=== PATIENT | female | born 1970 | race African-American/Black ===

== ENCOUNTER → 2016-09-25 | Outpatient (CLI) | payer OTHER ==
--- NOTE | 2016-09-25 11:23 | MM ---
Reason for exam: screening (asymptomatic). Last mammogram was performed 1 year and 10 months ago. History: Family history of breast cancer in maternal aunt at age 63. Physical Findings: A clinical breast exam by your physician is recommended on an annual basis and results should be correlated with mammographic findings. MG Screening Mammo w CAD Bilateral CC and MLO view(s) were taken. Prior study comparison: December 10, 2014, bilateral MG screening mammo w CAD. May 08, 2012, bilateral digital screening mammo w/CAD. There are scattered fibroglandular densities. There is no discrete abnormality. ASSESSMENT: Negative, BI-RAD 1 RECOMMENDATION: Routine screening mammogram of both breasts in 1 year.
== END | disposition home or self-care (01) ==
LOC: RADMAMWWP 07:57
PROVIDERS: ATTEND Internal Medicine
DX: Z12.31 Encounter for screening mammogram for malignant neoplasm of breast (principal)

== ENCOUNTER → 2018-06-25 | Outpatient (CLI) | payer OTHER ==
--- NOTE | 2018-06-25 13:31 | US ---
EXAMINATION TYPE: US pelvis complete transvag DATE OF EXAM: 06/25/2018 COMPARISON: NONE CLINICAL HISTORY: N93.9 abn uterine bleeding. Irregular bleeding x 3 months, 6, para 6, hist ory of tubal ligation TECHNIQUE: . Transabdominal sonographic images of the pelvis were acquired. Transvaginal sonographi c images were medically necessary to better assess the following anatomy: retroverted uterus and ovar ies Date of LMP: patient unsure EXAM MEASUREMENTS: Uterus: 9.7 x 5.9 x 6.9 cm Endometrial Stripe: 2.5 cm Right Ovary: 4.3 x 2.7 x 2.0 cm Left Ovary: 3.8 x 3.0 x 2.9 cm 1. Uterus: retroverted, heterogeneous echotexture with 1.9 x 1.8 x 1.7cm hypoechoic lesion left mid uterus 2. Endometrium: thickened, heterogeneous 3. Right Ovary: wnl 4. Left Ovary: 3.2 x 2.2 x 2.3cm cyst 5. Bilateral Adnexa: wnl 6. Posterior cul-de-sac: small amount of free fluid IMPRESSION: Findings compatible with fibroid uterus. There is a left ovarian cyst. Consider follow-up .
== END ==
LOC: RADUSWWP 10:44
PROVIDERS: ATTEND Obstetrics & Gynecology
DX: N83.202 Unspecified ovarian cyst, left side (principal)
CPT/HCPCS: 76830; 76856

== ENCOUNTER → 2018-06-25 | Outpatient (CLI) | payer OTHER ==
[2018-06-25 12:43] LABS: Anisocytosis Slight; HCT 31.3 % (34.0-46.0); HGB 9.2 gm/dL (11.4-16.0); Hypochromasia Marked; MCH 23.4 pg (25.0-35.0); MCHC 29.4 g/dL (31.0-37.0); MCV 79.6 fL (80.0-100.0); Microcytosis Slight; Platelet Count 332 k/uL (150-450); RBC 3.93 m/uL (3.80-5.40); RDW 18.2 % (11.5-15.5); WBC 8.9 k/uL (3.8-10.6)
[2018-06-25 19:05] LABS: Progesterone 4.1 ng/mL
[2018-06-25 19:07] LABS: DHEA Sulfate 86.9 ug/dL (26.0-430.0)
[2018-06-25 19:08] LABS: T4, Free (Free Thyroxine) 1.1 ng/dL (0.80-1.80)
== END | disposition home or self-care (01) ==
LOC: LABWHC1 11:29
PROVIDERS: ATTEND Obstetrics & Gynecology
DX: N93.9 Abnormal uterine and vaginal bleeding, unspecified (principal)
CPT/HCPCS: 36415; 82627; 82670; 83001; 83002; 84144; 84146; 84403; 84439; 84443; 84479; 85027

== ENCOUNTER 2018-07-08 17:35 | Emergency (ER) | payer OTHER ==
[2018-07-08 17:55] VITALS: BP 109/74; PULSE 84; RESP 16; TEMP 98.1
--- NOTE | 2018-07-08 19:13 | XR ---
EXAMINATION TYPE: XR tibia fibula RT DATE OF EXAM: 07/08/2018 COMPARISON: 04/14/2016 HISTORY: Pain TECHNIQUE: 3 views FINDINGS: There is intramedullary frank in the tibia fixing an old fracture of the midshaft. There is o ld healed fracture of the midshaft of the tibia and fibula. I see no acute fracture nor dislocation. Ankle mortise appears anatomic. Knee joint appears intact. IMPRESSION: Previous surgery. No acute abnormality of the right tibia and fibula. No change.
--- NOTE | 2018-07-08 20:08 | US ---
EXAMINATION TYPE: US venous doppler duplex LE RT DATE OF EXAM: 07/08/2018 6:46 PM COMPARISON: NONE CLINICAL HISTORY: Pain. Pain SIDE PERFORMED: Right TECHNIQUE: The lower extremity deep venous system is examined utilizing real time linear array sonog ángel with graded compression, doppler sonography and color-flow sonography. VESSELS IMAGED: External Iliac Vein (EIV) Common Femoral Vein Deep Femoral Vein Greater Saphenous Vein * Femoral Vein Popliteal Vein Small Saphenous Vein * Proximal Calf Veins (* superficial vessels) Right Leg: Negative for DVT No evidence of DVT right leg. IMPRESSION: Normal right leg duplex venous sonogram.
--- NOTE | 2018-07-08 20:20 | ED ---
Fall HPI - General Chief Complaint: Fall Stated Complaint: FALL, RT LEG INJURY Time Seen by Provider: 07/08/18 18:06 Source: patient Mode of arrival: wheelchair - History of Present Illness Initial Comments: 48-year-old female past medical history of previous right tibia fracture status post ORIF 2015 presents today for chief complaint of right leg pain x 1 day. Patient states that earlier today she was walking when she noticed pain in her right posterior calf, she stated it was intense causing her to fall to forward. Patient denies any head injury or injury to any other extremity. Pt states that she is able to range at the knee and ankle just experiencing pain in the posterior right calf with palpation, and ambulation. Pt denies recent surgery, history of cancer, exogenous estrogen use, calf swelling or warmth, calf masses , color changes of the extremity, loss sensation of the lower extremity, numbness tingling or paresthesias of the lower extremities or recent abx use. She states she was concerned that something occurred with her bronchitis in her leg and presented for evaluation. Upon arrival patient appears well, she was using crutches for ambulation. Pt does appear well in no acute distress. Remainder of ROS (-), patient denies any recent fever, chills, shortness of breath, chest pain, back pain, abdominal pain, nausea or vomiting, numbness or tingling, dysuria or hematuria, constipation or diarrhea, headaches or visual changes, or any other complaints. - Related Data Home Medications Medication Instructions Recorded Confirmed Ferrous Sulfate [Feosol] 325 mg PO DAILY 06/01/16 05/18/17 Allergies Allergy/AdvReac Type Severity Reaction Status Date / Time No Known Allergies Allergy Verified 07/08/18 17:55 Review of Systems ROS Statement: Those systems with pertinent positive or pertinent negative responses have been documented in the HPI. ROS Other: All systems not noted in ROS Statement are negative. Constitutional: Denies: fever, chills ENT: Denies: ear pain, throat pain Respiratory: Denies: cough, dyspnea, wheezes, hemoptysis, stridor Cardiovascular: Denies: chest pain, palpitations, dyspnea on exertion, edema Gastrointestinal: Denies: abdominal pain, nausea, vomiting, diarrhea, constipation Genitourinary: Denies: dysuria Musculoskeletal: Reports: myalgia. Denies: back pain Skin: Denies: rash, lesions Neurological: Denies: headache, weakness, numbness, paresthesias, confusion, abnormal gait Past Medical History Past Medical History: Blood Disorder Additional Past Medical History / Comment(s): MIGRAINES. ANEMIA. PAIN IN UPPER MID ABD. History of Any Multi-Drug Resistant Organisms: None Reported Past Surgical History: Cholecystectomy, Orthopedic Surgery Additional Past Surgical History / Comment(s): ORIF Right Leg, Aguila Placed Past Anesthesia/Blood Transfusion Reactions: No Reported Reaction Past Psychological History: No Psychological Hx Reported Smoking Status: Current every day smoker Past Alcohol Use History: Occasional Past Drug Use History: Marijuana - Past Family History Mother Family Medical History: No Reported History General Exam - General Exam Comments Initial Comments: General: The patient is awake and alert, in no distress, and does not appear acutely ill. Eye: Pupils are equal, round and reactive to light, extra-ocular movements are intact. No nystagmus. There is normal conjunctiva bilaterally. No signs of icterus. Ears, nose, mouth and throat: There are moist mucous membranes and no oral lesions. Neck: The neck is supple, there is no tenderness or JVD. Cardiovascular: There is a regular rate and rhythm. No murmur, rub or gallop is appreciated. Respiratory: Lungs are clear to auscultation, respirations are non-labored, breath sounds are equal. No wheezes, stridor, rales, or rhonchi. Musculoskeletal: Patient is able to fully range at the right lower extremity with extension and flexion at the knee, flexion and extension inversion eversion at the ankle. Upon inspection of the right lower extremity there is no erythema, no masses. Upon palpation of the right lower extremity there is pain of the posterior right calf, no palpable masses. There is no bogginess noted of the Achilles tendon. Achilles tendon is palpable. Nadeau intact, flexion with squeezing of calf. Strength 5/5 of the right LE equal in comparison with left. Sensation intact of the LE. DP pulses equal bilaterally 2+ .Extensor mechanism intact. Neurological: A&O x 3. CN II-XII intact, There are no obvious motor or sensory deficits. Coordination appears grossly intact. Speech is normal Skin: Skin is warm and dry and no rashes or lesions are noted. Psychiatric: Cooperative, appropriate mood & affect, normal judgment. Limitations: no limitations Course Vital Signs 07/08/18 17:52 Temperature 98.1 F Pulse Rate 84 Respiratory 16 Rate Blood Pressure 109/74 O2 Sat by Pulse 98 Oximetry Medical Decision Making - Medical Decision Making 48yo with right posterior calf pain that occurred suddenly today while walking concerning for tendon/muscle injury. Pt neurovascularly intact, full range of motion at the knee and ankle of the right lower extremity. There is no clinical signs on PE of Achilles tendon injury. X-ray negative for acute process. Surgical changes noted. Ultrasound obtained due to complaint of right calf pain, negative for deep venous thrombosis. At this time I feel patient may have a muscle or tendon tear including that of the gastroc. At this time we do feel patient is stable for discharge with follow-up with orthopedic surgery. Patient was instructed to use crutches for ambulation was given pain medication while in the emergency department, she states she has a ride home. Case discussed with Dr. Foley in detail who agrees with impression and plan. Disposition Clinical Impression: Right leg pain Disposition: HOME SELF-CARE Condition: Good Instructions: Leg Pain (ED) Additional Instructions: Please use medication as discussed. Please follow-up with family doctor in the next 2 days, and orthopedic surgery in next 2-3 days, for possible muscle tear. Please ambulate with crutches until evaluation. Please return to emergency room if the symptoms increase or worsen or for any other concerns, as discussed. Is patient prescribed a controlled substance at d/c from ED?: No Referrals: Ashley Arellano MD [Primary Care Provider] - 1-2 days Aubrey Perez MD [STAFF PHYSICIAN] - 1-2 days Time of Disposition: 20:20
== END 2018-07-08 20:26 | disposition home or self-care (01) ==
LOC: EC 17:35
DX: M79.604 Pain in right leg (principal); F17.200 Nicotine dependence, unspecified, uncomplicated; W19.XXXA Unspecified fall, initial encounter; Y93.01 Activity, walking, marching and hiking
CPT/HCPCS: 99284

== ENCOUNTER → 2018-07-29 | Outpatient (CLI) | payer OTHER ==
[2018-07-29 15:06] LABS: Anisocytosis Moderate; Basophils % (A) 0 %; Eosinophils # (A) 0.1 k/uL (0-0.7); Eosinophils % (A) 1 %; HCT 30.6 % (34.0-46.0); HGB 8.6 gm/dL (11.4-16.0); Hypochromasia Marked; Lymphocytes # (A) 2.4 k/uL (1.0-4.8); Lymphocytes % (A) 27 %; MCH 22.2 pg (25.0-35.0); MCHC 28.2 g/dL (31.0-37.0); MCV 78.8 fL (80.0-100.0); Mean Platelet Volume 6.6; Microcytosis Slight; Monocytes # (A) 0.4 k/uL (0-1.0); Monocytes % (A) 4 %; Neutrophils # (A) 5.5 k/uL (1.3-7.7); Neutrophils % (A) 63 %; Platelet Count 322 k/uL (150-450); Poikilocytosis Slight; RBC 3.88 m/uL (3.80-5.40); RDW 20.5 % (11.5-15.5); WBC 8.8 k/uL (3.8-10.6)
== END ==
LOC: LABPAT 13:58
PROVIDERS: ATTEND Obstetrics & Gynecology
DX: Z01.812 Encounter for preprocedural laboratory examination (principal)
CPT/HCPCS: 36415; 85025

== ENCOUNTER 2018-08-06 11:01 | Day surgery (SDC) | payer OTHER ==
[2018-08-02 12:29] VITALS: BMI 32.8
--- NOTE | 2018-08-05 16:35 | P.HPOB ---
History of Present Illness H&P Date: 08/05/18 Chief Complaint: Heavy vaginal bleeding Patient is a 48-year-old female with heavy vaginal bleeding. She relates that she is had 30 days of bleeding throughout the month of April as well as several other occasions with heavy long periods. Ultrasound revealed an endometrium measured measuring 2.5 cm. With a potential risk of hyperplasia versus polyp she is scheduled for dilation and curettage with hysteroscopy. Risks/benefits/alternatives to this procedure were discussed with the patient in detail and all questions were answered for her prior to proceeding to the operating room. Past Medical History Past Medical History: Blood Disorder Additional Past Medical History / Comment(s): MIGRAINES. ANEMIA. History of Any Multi-Drug Resistant Organisms: None Reported Past Surgical History: Cholecystectomy, Orthopedic Surgery, Tubal Ligation Additional Past Surgical History / Comment(s): ORIF Right Leg, Aguila Placed Past Anesthesia/Blood Transfusion Reactions: No Reported Reaction Smoking Status: Current every day smoker - Past Family History Mother Family Medical History: No Reported History Medications and Allergies Home Medications Medication Instructions Recorded Confirmed Type Ferrous Sulfate [Feosol] 325 mg PO DAILY 06/01/16 08/02/18 History Allergies Allergy/AdvReac Type Severity Reaction Status Date / Time No Known Allergies Allergy Verified 08/02/18 12:23 Exam Osteopathic Statement: *. No significant issues noted on an osteopathic structural exam other than those noted in the History and Physical/Consult. - OBG Physical Exam Breast: both: normal (no masses) Abdomen: bowel sounds normal, no diffuse tenderness, no bruit present, no guarding noted, no hepatomegaly, no splenomegaly, no mass Vulva: both: normal Vagina: normal moisture, no discharge Cervix: no lesion, no discharge Uterus: normal size, normal contour Adnexa: both: normal Anus/Rectum: normal perianal skin, no rectal mass, no hemorrhoids, heme negative
[~2018-08-06 11:01] MED LIST: DEXAMETHASONE SOD PHOSPHATE 10 MG/ML 1 ML VIAL IV ONE; MIDAZOLAM (PF) 2 MG/2 ML VIAL IV PRN; ONDANSETRON 4 MG/2 ML VIAL IVP ONE; Pre Op ABX Message 1 EACH MISC MISCELLANE ONE; SCOPOLAMINE 1.5MG/72HR PATCH TRANSDERM ONE
[2018-08-06] MEDS: LACTATED RINGERS 1,000 ML IV SCH ×2 (11:28→12:11)
[2018-08-06] MEDS ORDERED: LIDOCAINE 1% 20 ML VIAL (10MG/ML) FOR IV START INTRADERMA ONE (11:29)
[2018-08-06 11:34] VITALS: TEMP 97.4
[2018-08-06] MEDS ORDERED: MIDAZOLAM 2 MG/2 ML VIAL ONE (12:14)
[2018-08-06] MEDS ORDERED: PROPOFOL 10 MG/ML 20 ML VIAL IV ONE (12:14)
[2018-08-06] MEDS ORDERED: LIDOCAINE 1% INJ 10MG/ML (20 ML MDV) ONE (12:14)
[2018-08-06] MEDS ORDERED: fentaNYL (PF) 50 MCG/ML 2 ML AMP ONE (12:14)
--- NOTE | 2018-08-06 12:40 | P.OP ---
Date of Procedure: 08/06/18 Preoperative Diagnosis: Menorrhagia: Thickened endometrium Postoperative Diagnosis: Same Procedure(s) Performed: D&C with hysteroscopy Anesthesia: JEROME Surgeon: Urbano Everett Estimated Blood Loss (ml): 5 Pathology: other (Uterine curettings) Condition: stable Disposition: same day Operative Findings: Grossly enlarged uterus retroverted at 11 cm. Possible small sub-mural fibroid Description of Procedure: Patient was taken to the operating suite where a general anesthetic was found be adequate. She was prepped and draped in normal sterile fashion and placed in the dorsal lithotomy position. Initially a weighted speculum was inserted into the vagina and the anterior lip of the cervix was identified and grasped with a single-tooth tenaculum. Cervix was then dilated and sounded to 11 cm. Camera was then inserted. Sharp retroversion was noted. Proliferative endometrium with possible small subdural fibroid was noted. Camera was then removed and sharp curettings of the endometrium were obtained. All tissues collected and placed on Telfa and sent to pathology for evaluation. Sponge, lap , needle counts were all then correct 2 all incidents removed and patient was taken to the recovery room in stable and satisfactory condition. Plan - Discharge Summary New Discharge Prescriptions: New Ibuprofen [Motrin] 600 mg PO Q6HR PRN #30 tab PRN Reason: Pain No Action Ferrous Sulfate [Feosol] 325 mg PO DAILY Discharge Medication List Ferrous Sulfate [Feosol] 325 mg PO DAILY 06/01/16 [History] Ibuprofen [Motrin] 600 mg PO Q6HR PRN #30 tab 08/06/18 [Rx] Follow up Appointment(s)/Referral(s): Urbano Everett DO [Doctor of Osteopathic Medicine] - 1 Week Activity/Diet/Wound Care/Special Instructions: No heavy lifting, limit stairs and driving and pelvic rest. If any high temperatures, heavy bleeding, or severe pain call my office Discharge Disposition: HOME SELF-CARE
[2018-08-06] MEDS ORDERED: KETOROLAC 30 MG/ML 1 ML VIAL IVP ONE (12:55)
[2018-08-06] MEDS: HYDROmorphone 0.5 MG/0.5 ML SYRINGE IVP PRN ×2 (12:56→13:08)
[2018-08-06 13:17] VITALS: RESP 16
[2018-08-06 13:59] VITALS: BP 119/64; PULSE 69
== END 2018-08-06 14:34 | disposition home or self-care (01) ==
LOC: OR 11:01
PROVIDERS: ATTEND Obstetrics & Gynecology
DX: N92.0 Excessive and frequent menstruation with regular cycle (principal); N84.0 Polyp of corpus uteri; D64.9 Anemia, unspecified; G43.909 Migraine, unspecified, not intractable, without status migrainosus; F17.210 Nicotine dependence, cigarettes, uncomplicated
CPT/HCPCS: 81025; 88305; 58558; J2250; J1100; J2405; J2001; J3010; J1885; J2704; J1170

== ENCOUNTER → 2018-08-30 | Outpatient (CLI) | payer OTHER ==
--- NOTE | 2018-09-02 09:56 | MM ---
Reason for exam: screening (asymptomatic). Last mammogram was performed 1 year and 11 months ago. History: Family history of breast cancer in maternal aunt at age 63. Physical Findings: A clinical breast exam by your physician is recommended on an annual basis and results should be correlated with mammographic findings. MG 3D Screening Mammo W/Cad Bilateral CC and MLO view(s) were taken. Prior study comparison: September 25, 2016, bilateral MG screening mammo w CAD. December 10, 2014, bilateral MG screening mammo w CAD. There are scattered fibroglandular densities. There is no discrete abnormality. No significant changes when compared with prior studies. ASSESSMENT: Negative, BI-RAD 1 RECOMMENDATION: Routine screening mammogram of both breasts in 1 year.
== END | disposition home or self-care (01) ==
LOC: RADMAMWWP 07:39
PROVIDERS: ATTEND Internal Medicine
DX: Z12.31 Encounter for screening mammogram for malignant neoplasm of breast (principal)
CPT/HCPCS: 77063; 77067

== ENCOUNTER 2019-04-16 09:08 | Day surgery (SDC) | payer OTHER ==
[~2019-04-16 09:08] MED LIST changes: -DEXAMETHASONE SOD PHOSPHATE 10 MG/ML 1 ML VIAL IV ONE; +LACTATED RINGERS 1,000 ML IV SCH; +LIDOCAINE 1% 20 ML VIAL (10MG/ML) FOR IV START INTRADERMA PRN; -MIDAZOLAM (PF) 2 MG/2 ML VIAL IV PRN; -ONDANSETRON 4 MG/2 ML VIAL IVP ONE; -Pre Op ABX Message 1 EACH MISC MISCELLANE ONE; -SCOPOLAMINE 1.5MG/72HR PATCH TRANSDERM ONE
[2019-04-16 09:47] VITALS: RESP 16; TEMP 97.7
[2019-04-16] MEDS ORDERED: LIDOCAINE 1% INJ 10MG/ML (20 ML MDV) ONE (10:08)
[2019-04-16] MEDS ORDERED: PROPOFOL 10 MG/ML 20 ML VIAL IV ONE (10:08)
--- NOTE | 2019-04-16 10:20 | P.GSHP ---
History of Present Illness H&P Date: 04/16/19 Chief Complaint: Epigastric pain, gastritis, anemia This a 48-year-old female who's had complaints of epigastric pain. She is undergoing EGD and colonoscopy workup for gastritis and anemia. Past Medical History Past Medical History: GERD/Reflux Additional Past Medical History / Comment(s): FREQUENT LOW IRON COUNTS. MIGRAINES. ANEMIA. PAIN IN UPPER MID ABD. History of Any Multi-Drug Resistant Organisms: None Reported Past Surgical History: Cholecystectomy, Orthopedic Surgery Additional Past Surgical History / Comment(s): ORIF Right Leg, Aguila Placed Past Anesthesia/Blood Transfusion Reactions: No Reported Reaction Past Psychological History: No Psychological Hx Reported Smoking Status: Current every day smoker Past Alcohol Use History: Occasional Additional Past Alcohol Use History / Comment(s): SMOKES 1/2 PPD, X20 YEARS. Past Drug Use History: Marijuana Additional Drug Use History / Comment(s): MARIJUANA USE DAILY - Past Family History Mother Family Medical History: No Reported History Medications and Allergies Home Medications Medication Instructions Recorded Confirmed Type Ferrous Sulfate [Feosol] 325 mg PO DAILY 06/01/16 04/16/19 History Ibuprofen [Motrin] 600 mg PO Q6HR PRN #30 tab 08/06/18 04/16/19 Rx Loratadine 10 mg PO QAM 04/11/19 04/16/19 History Pantoprazole [Protonix] 40 mg PO QAM 04/11/19 04/16/19 History Allergies Allergy/AdvReac Type Severity Reaction Status Date / Time No Known Allergies Allergy Verified 04/16/19 09:37 Surgical - Exam Vital Signs Temp Pulse Resp BP Pulse Ox 97.7 F 83 16 140/78 96 04/16/19 09:41 04/16/19 09:41 04/16/19 09:41 04/16/19 09:41 04/16/19 09:41 - General well developed, well nourished, no distress - Eyes PERRL - ENT normal pinna - Neck no masses - Respiratory normal expansion - Cardiovascular Rhythm: regular - Abdomen Abdomen: soft, non tender Assessment and Plan Assessment: Epigastric pain, anemia. We'll perform EGD and colonoscopy
--- NOTE | 2019-04-16 10:45 | P.OP ---
Date of Procedure: 04/16/19 Preoperative Diagnosis: Anemia Gastritis Postoperative Diagnosis: Hiatal hernia Esophagitis Antral gastritis Normal colon Procedure(s) Performed: EGD Colonoscopy Anesthesia: MAC Surgeon: Delgado Ward Pathology: other (Antrum, esophagus) Condition: stable Disposition: PACU Description of Procedure: PROCEDURE: The patient was placed on the endoscopy table in the lateral position. Digital rectal examination was performed which revealed no abnormalities. . Flexible colonoscope was then placed in the patient's anus and passed throughout the entire colon. The ileocecal valve was visualized. The cecum, ascending, transverse, descending and sigmoid colon were normal. The rectum was normal as well. There were no masses, polyps or diverticula noted in the entire colon. Next, the gastroscope placed oropharynx and passed in the esophagus and into the stomach. Scope was then placed through the pylorus. The first and second portion of the duodenum appeared normal. Scope was then brought back the antrum and this was mildly inflamed. A biopsies performed. The scope was then retro flexed and the remainder some appeared normal. The patient had a moderate size hiatal hernia. The GE junction was at 38 cm. The distal esophagus appeared inflamed a biopsies performed. The proximal esophagus appeared normal. Scope withdrawn for patient. There is no evidence of any significant GI bleed. The patient's anemia is most likely microscopic related to esophagitis from her hiatal hernia.
[2019-04-16 11:13] VITALS: BP 127/77; PULSE 70
== END 2019-04-16 11:29 | disposition home or self-care (01) ==
LOC: ORWHC2ENDO 09:08
PROVIDERS: ATTEND Surgery
DX: K21.0 Gastro-esophageal reflux disease with esophagitis (principal); K29.50 Unspecified chronic gastritis without bleeding; K44.9 Diaphragmatic hernia without obstruction or gangrene; K22.8 Other specified diseases of esophagus; D64.9 Anemia, unspecified; G43.909 Migraine, unspecified, not intractable, without status migrainosus; F17.210 Nicotine dependence, cigarettes, uncomplicated; Z90.49 Acquired absence of other specified parts of digestive tract; Z87.81 Personal history of (healed) traumatic fracture; Z79.1 Long term (current) use of non-steroidal anti-inflammatories (NSAID); Z79.899 Other long term (current) drug therapy
CPT/HCPCS: 81025; 88305; 45378; 43239; J2001; J2704

== ENCOUNTER → 2019-04-29 | Outpatient (CLI) | payer OTHER ==
[2019-04-29 14:04] LABS: Anisocytosis Slight; Basophils % (A) 0 %; Eosinophils # (A) 0.1 k/uL (0-0.7); Eosinophils % (A) 1 %; HCT 32.7 % (34.0-46.0); HGB 9.3 gm/dL (11.4-16.0); Hypochromasia Marked; Lymphocytes % (A) 28 %; MCH 21.5 pg (25.0-35.0); MCHC 28.5 g/dL (31.0-37.0); MCV 75.7 fL (80.0-100.0); Mean Platelet Volume 6.1; Microcytosis Slight; Monocytes # (A) 0.3 k/uL (0-1.0); Monocytes % (A) 5 %; Neutrophils # (A) 4.6 k/uL (1.3-7.7); Neutrophils % (A) 64 %; Platelet Count 278 k/uL (150-450); RBC 4.33 m/uL (3.80-5.40); RDW 18.1 % (11.5-15.5); WBC 7.1 k/uL (3.8-10.6)
== END | disposition home or self-care (01) ==
LOC: LABPAT 12:38
PROVIDERS: ATTEND Surgery
DX: Z01.818 Encounter for other preprocedural examination (principal); K21.0 Gastro-esophageal reflux disease with esophagitis; D64.9 Anemia, unspecified
CPT/HCPCS: 85025; 86850; 86900; 86901; 93005

== ENCOUNTER 2019-05-02 08:06 | Day surgery (SDC) | payer OTHER ==
[~2019-05-02 08:06] MED LIST changes: +DEXAMETHASONE SOD PHOSPHATE 10 MG/ML 1 ML VIAL IV ONE; +HEPARIN SODIUM,PORCINE 5,000 UNIT/ML 1 ML VIAL SQ ONE; +MIDAZOLAM 2 MG/2 ML VIAL IV PRN; +SCOPOLAMINE 1.5MG/72HR PATCH TRANSDERM ONE
[2019-05-02] MEDS: ONDANSETRON 4 MG/2 ML VIAL IVP ONE ×2 (08:37→10:36)
--- NOTE | 2019-05-02 08:48 | P.GSHP ---
History of Present Illness H&P Date: 05/02/19 Chief Complaint: GERD This a 48-year-old female referred from Dr. clark. NThe patient has had long-standing problems with reflux esophagitis. The patient underwent recent EGD is found have evidence of esophagitis. Patient has been well informed on the procedure of laparoscopic Paloma fundoplication. The patient is aware the risk of the conversion to the open procedure, risk of injury to the stomach, liver and spleen. The patient is also a risk of r ecurrent GERD and dysphagia symptoms. The patient understands there is a postoperative diet of full liquids for 2 weeks after surgery. Past Medical History Past Medical History: GERD/Reflux Additional Past Medical History / Comment(s): FREQUENT LOW IRON COUNTS. MIGRAINES. ANEMIA. hiatal hernia, History of Any Multi-Drug Resistant Organisms: None Reported Past Surgical History: Cholecystectomy, Orthopedic Surgery Additional Past Surgical History / Comment(s): ORIF Right Leg-Aguila Placed, D&C, rt eye surgery for glaucoma Past Anesthesia/Blood Transfusion Reactions: No Reported Reaction Smoking Status: Current every day smoker - Past Family History Mother Family Medical History: No Reported History Medications and Allergies Home Medications Medication Instructions Recorded Confirmed Type Ferrous Sulfate [Feosol] 325 mg PO TID 06/01/16 05/02/19 History Ibuprofen [Motrin] 600 mg PO Q6HR PRN #30 tab 08/06/18 04/28/19 Rx Loratadine 10 mg PO QAM 04/11/19 05/02/19 History Pantoprazole [Protonix] 40 mg PO QAM 04/11/19 05/02/19 History Allergies Allergy/AdvReac Type Severity Reaction Status Date / Time No Known Allergies Allergy Verified 05/02/19 08:16 Surgical - Exam Vital Signs Temp Pulse Resp BP Pulse Ox 97.5 F L 75 16 123/68 99 05/02/19 08:22 05/02/19 08:22 05/02/19 08:22 05/02/19 08:22 05/02/19 08:22 - General well developed, well nourished, no distress - Eyes PERRL - ENT normal pinna - Neck no masses - Respiratory normal expansion - Cardiovascular Rhythm: regular - Abdomen Abdomen: soft, non tender Assessment and Plan Assessment: GERD. We'll perform laparoscopic Paloma fundoplication.
[2019-05-02] MEDS ORDERED: ROCURONIUM BROMIDE 10 MG/ML 10 ML VIAL IV ONE (09:13)
[2019-05-02] MEDS ORDERED: NEOSTIGMINE 1 MG/ML 10 ML VIAL ONE (09:13)
[2019-05-02] MEDS ORDERED: PROPOFOL 10 MG/ML 20 ML VIAL IV ONE (09:13)
[2019-05-02] MEDS ORDERED: GLYCOPYRROLATE 0.2 MG/ML 2 ML VIAL ONE (09:13)
[2019-05-02] MEDS ORDERED: fentaNYL (PF) 50 MCG/ML 2 ML AMP ONE (09:13)
[2019-05-02] MEDS ORDERED: ePHEDrine SULFATE/0.9% NACL/PF 50 MG/5 ML SYRINGE IV ONE (09:13)
[2019-05-02] MEDS ORDERED: LIDOCAINE 1% INJ 10MG/ML (20 ML MDV) ONE (09:13)
[2019-05-02] MEDS ORDERED: HYDROmorphone (PF) 1 MG/ML ONE (09:13)
[2019-05-02] MEDS ORDERED: MIDAZOLAM 2 MG/2 ML VIAL ONE (09:13)
[2019-05-02] MEDS ORDERED: SUCCINYLCHOLINE CHLORIDE 100 MG/5 ML SYR IV ONE (09:13)
[2019-05-02] MEDS ORDERED: BUPIVACAINE (PF) 0.25% 30 ML VIAL SQ ONE (09:42)
[2019-05-02] MEDS ORDERED: HYDROmorphone 1 MG/ML 1 ML SYRINGE IVP PRN ×2 (10:22→12:56)
--- NOTE | 2019-05-02 10:22 | P.OP ---
Date of Procedure: 05/02/19 Preoperative Diagnosis: GERD Postoperative Diagnosis: GERD Procedure(s) Performed: Laparoscopic Paloma fundal plication Anesthesia: JEROME Surgeon: Delgado Ward Estimated Blood Loss (ml): 5 Pathology: none sent Condition: stable Disposition: PACU Description of Procedure: Farzana patient was placed on the operating table in the supine position. The patient received general anesthesia. And was placed in dorsal lithotomy position. The patient was prepped and draped in the usual sterile fashion. The skin incision sites were anesthetized with 1% local Xylocaine. The skin was incised in the left periumbilical area and then using a blade less 5 mm trocar under direct visualization panel cavity was entered. After adequate insufflation the laparoscope was then placed into the peritoneal cavity. Next a 5 mm trochars placed in the right epigastric position. Another 5 millimeter trocar the right lateral position. Another 5 millimeter trocar in the left lateral position a 5 mm trocar is placed in the left epigastric position. And then the initial 5 mm trocar was exchanged for a 10 mm trocar. The left lateral lobe liver was retracted. The hernia was seen. The crural defect was then dissected using the Harmonic scissors device. A 360 crural dissection was performed the esophagus stomach was reduced back into the peritoneal Cavity. The crural defect was then closed using 2-0 Ethibond suture. Next the fundus of the stomach was mobilized using the [place] scissors device. and then a 58- Mongolian bougie dilator was placed oropharynx passed into the esophagus and stomach the fundal plication wrap was then performed by grasping the fundus pos teriorly and bringing it around the esophagus and stomach fundoplication was then performed using 2-0 Ethibond suture. Care was taken that the fundal location rested over top of the intra-abdominal esophagus. There was no injury seen to the stomach or esophagus. The dilator was then withdrawn. The abdomen was irrigated there is no bleeding seen. The trochars were then withdrawn and then skin incision sites were closed using 3-0 Monocryl suture Steri-Strips are applied. Patient thought procedure well and sent to recovery room in stable condition.
[2019-05-02] MEDS: HYDROmorphone 0.5 MG/0.5 ML SYRINGE IVP PRN ×2 (10:25→10:38)
[2019-05-02] MEDS ORDERED: LACTATED RINGERS 1,000 ML IV ONE (10:26)
--- NOTE | 2019-05-02 12:00 | P.CONS ---
History of Present Illness - Reason for Consult Consult date: 05/02/19 Medical management Requesting physician: Delgado Ward - Chief Complaint GERD - History of Present Illness This is a 48-year-old female patient who presented for an elective laparoscopic Niesen fundoplication with Dr. Ward. Patient has a long-standing history of reflux symptoms. Patient recently underwent EGD and found to have evidence of esophagitis. Patient has a past medical history of GERD, iron deficiency anemia, migraines, hiatal hernia, cholecystectomy, ORIF of the right leg with aguila placement, D&C and right eye surgery for glaucoma. Patient is currently on every day smoker. Patient denies significant history for blood clots or irregular heart rhythm. At this time patient is resting comfortably in bed. Patient is having some discomfort post surgery. Patient denies shortness of breath. Patient denies nausea vomiting or diarrhea. Patient denies any urinary burning or frequency. Review of Systems Please refer to HPI otherwise unremarkable Past Medical History Past Medical History: GERD/Reflux Additional Past Medical History / Comment(s): FREQUENT LOW IRON COUNTS. MIGRAINES. ANEMIA. hiatal hernia, History of Any Multi-Drug Resistant Organisms: None Reported Past Surgical History: Cholecystectomy, Orthopedic Surgery Additional Past Surgical History / Comment(s): ORIF Right Leg-Aguila Placed, D&C, rt eye surgery for glaucoma Past Anesthesia/Blood Transfusion Reactions: No Reported Reaction Smoking Status: Current every day smoker - Past Family History Mother Family Medical History: No Reported History Medications and Allergies Home Medications Medication Instructions Recorded Confirmed Type Ferrous Sulfate [Feosol] 325 mg PO TID 06/01/16 05/02/19 History Ibuprofen [Motrin] 600 mg PO Q6HR PRN #30 tab 08/06/18 04/28/19 Rx Loratadine 10 mg PO QAM 04/11/19 05/02/19 History Pantoprazole [Protonix] 40 mg PO QAM 04/11/19 05/02/19 History Allergies Allergy/AdvReac Type Severity Reaction Status Date / Time No Known Allergies Allergy Verified 05/02/19 08:16 Physical Exam Vitals: Vital Signs Temp Pulse Pulse Resp BP BP Pulse Ox 05/02/19 11:46 16 05/02/19 11:30 96.8 F L 66 16 125/81 99 05/02/19 11:01 66 16 138/81 100 05/02/19 10:46 65 16 138/79 100 05/02/19 10:30 74 16 140/75 100 05/02/19 10:16 98.8 F 82 16 155/93 100 05/02/19 08:22 97.5 F L 75 16 123/68 99 Intake and Output 05/01/19 05/02/19 05/02/19 22:59 06:59 14:59 Intake Total 1175 Output Total 170 Balance 1005 Intake: IV 1175 Oral 0 Output: Urine 150 Estimated Blood Loss 20 Other: Voiding Method Toilet Head normocephalic Neck supple Lungs clear to auscultation bilaterally no wheezing or crackles Heart regular rate and rhythm S1-S2, no rub or gallop Abdomen is soft nontender nondistended positive bowel sounds no hepatosplenomegaly Extremities no edema Neuro alert and orientated to 3 Assessment and Plan Assessment: 1. Reflux esophagitis status post left septic Niesen fundoplication with Dr. Ward. Patient is currently postop day 0. Paloma clear liquid diet has been ordered 2. History of iron deficiency anemia 3. History of seasonal ALLERGIES 4. History of migraines 5. Nicotine dependence. Patient educated greater than 3 minutes on smoking cessation. Nicotine patch has been ordered 6. History of hiatal hernia 7. History of cholecystectomy 8. History of ORIF of the right leg with aguila placement 9. History of D&C 10. History of right eye surgery for carcoma 11. Daily marijuana use DVT prophylaxis Lovenox A.m. labs ordered Thank you for this consultation we'll continue to follow patient closely throug hout stay Time with Patient: Greater than 30 (Greater than 60% of the total time spent in counseling and coordination of care. I performed an examination of the patient and discussed their management with the Nurse Practitioner. I have reviewed the Nurse Practitioner's notes and agree with the documented findings and plan of care)
[2019-05-02 13:32] LABS: Anisocytosis Slight; Basophils % (A) 0 %; Eosinophils % (A) 0 %; HCT 34.1 % (34.0-46.0); HGB 9.2 gm/dL (11.4-16.0); Hypochromasia Marked; Lymphocytes # (A) 0.5 k/uL (1.0-4.8); Lymphocytes % (A) 6 %; MCH 21.2 pg (25.0-35.0); MCHC 26.8 g/dL (31.0-37.0); Mean Platelet Volume 6.7; Microcytosis Slight; Monocytes # (A) 0.1 k/uL (0-1.0); Monocytes % (A) 2 %; Neutrophils # (A) 7.6 k/uL (1.3-7.7); Neutrophils % (A) 91 %; Platelet Count 259 k/uL (150-450); RBC 4.32 m/uL (3.80-5.40); WBC 8.3 k/uL (3.8-10.6)
[2019-05-02 13:38] LABS: ALT 23 U/L (9-52); AST 35 U/L (14-36); African American GFR (CKD) >90 (>60 ml/min/1.73 sqM); Albumin 4.2 g/dL (3.5-5.0); Alkaline Phosphatase 78 U/L (38-126); Anion Gap 10 mmol/L; Blood Urea Nitrogen 11 mg/dL (7-17); Calcium 8.9 mg/dL (8.4-10.2); Carbon Dioxide 23 mmol/L (22-30); Chloride 108 mmol/L (98-107); Glucose 141 mg/dL (74-99); Potassium 4.3 mmol/L (3.5-5.1); Sodium 141 mmol/L (137-145); Total Bilirubin 0.2 mg/dL (0.2-1.3); Total Protein 7.7 g/dL (6.3-8.2)
[2019-05-02] MEDS ORDERED: ONDANSETRON 4 MG/2 ML VIAL IVP PRN (13:43)
[2019-05-02 14:24] VITALS: BMI 33.5
[2019-05-02 15:54] VITALS: RESP 18
--- NOTE | 2019-05-02 16:09 | FL ---
EXAMINATION TYPE: FL esophagus cervic/pharynx DATE OF EXAM: 05/02/2019 LIMITED UGI-ESOPHAGRAM: CLINICAL HISTORY: Pain and hernia. Golden fundoplication surgery earlier today. TECHNIQUE: Limited esophagram is performed utilizing 45 oz of Isovue-370. A total of 3 seconds of fl uoroscopic time was utilized during procedure. 22 spot images are saved. Prior esophagram June 19, 2016 FINDINGS: The patient swallowed contrast without difficulty or delay. Esophageal peristalsis and mo tility are within normal limits. There is good flow of contrast along the diaphragmatic hiatus into t he stomach, there is no evidence of contrast extravasation to suggest leak. No persistent hiatal ema ia is seen. Patient remains asymptomatic. Small degree of free air is presumed postsurgical below aysha phragm. Slightly elevated left hemidiaphragm is noted. Cholecystectomy clips are present. IMPRESSION: No evidence of leak or significant obstruction status post Golden fundoplication surgery earlier today.
[2019-05-02] MEDS: D5-0.45% NACL WITH KCL 20MEQ/L 1,000 ML IV SCH (16:20)
[2019-05-02] MEDS: SIMETHICONE 40 MG/0.6 ML DROPS 2,000 MG/30 ML BOTTLE PO SCH ×3 (16:24→22:49)
[2019-05-02] MEDS: HYDROcodone/APAP 5-325MG 1 EACH TAB PO PRN ×2 (16:25→20:22)
[2019-05-03] MEDS: HYDROcodone/APAP 5-325MG 1 EACH TAB PO PRN ×3 (01:34→09:42)
[2019-05-03] MEDS: D5-0.45% NACL WITH KCL 20MEQ/L 1,000 ML IV SCH ×3 (01:35→09:50)
[2019-05-03 07:50] LABS: Anisocytosis Slight; Basophils % (A) 0 %; Eosinophils % (A) 0 %; HCT 29.4 % (34.0-46.0); HGB 8.2 gm/dL (11.4-16.0); Hypochromasia Marked; Lymphocytes # (A) 1.9 k/uL (1.0-4.8); Lymphocytes % (A) 23 %; MCH 21.6 pg (25.0-35.0); MCHC 27.7 g/dL (31.0-37.0); MCV 77.9 fL (80.0-100.0); Mean Platelet Volume 5.8; Microcytosis Slight; Monocytes # (A) 0.5 k/uL (0-1.0); Monocytes % (A) 5 %; Neutrophils # (A) 5.8 k/uL (1.3-7.7); Neutrophils % (A) 70 %; Platelet Count 235 k/uL (150-450); RBC 3.78 m/uL (3.80-5.40); RDW 18.7 % (11.5-15.5); WBC 8.4 k/uL (3.8-10.6)
[2019-05-03 08:02] LABS: ALT 17 U/L (9-52); AST 26 U/L (14-36); African American GFR (CKD) >90 (>60 ml/min/1.73 sqM); Albumin 3.6 g/dL (3.5-5.0); Alkaline Phosphatase 59 U/L (38-126); Anion Gap 10 mmol/L; Blood Urea Nitrogen 6 mg/dL (7-17); Calcium 8.9 mg/dL (8.4-10.2); Carbon Dioxide 23 mmol/L (22-30); Chloride 107 mmol/L (98-107); Glucose 105 mg/dL (74-99); Potassium 3.8 mmol/L (3.5-5.1); Sodium 140 mmol/L (137-145); Total Bilirubin 0.5 mg/dL (0.2-1.3); Total Protein 6.7 g/dL (6.3-8.2)
[2019-05-03] MEDS: SIMETHICONE 40 MG/0.6 ML DROPS 2,000 MG/30 ML BOTTLE PO SCH ×2 (08:24→14:04)
[2019-05-03 08:31] VITALS: BP 143/84; PULSE 68; TEMP 97.6
[2019-05-03] MEDS ORDERED: ENOXAPARIN 40 MG/0.4 ML SYRINGE SQ SCH (09:00)
[2019-05-03] MEDS ORDERED: NICOTINE 14MG/24HR PATCH TRANSDERM SCH (09:00)
--- NOTE | 2019-05-03 13:37 | P.PN ---
Subjective Progress Note Date: 05/03/19 This is a 48-year-old female patient who presented for an elective laparoscopic Niesen fundoplication with Dr. Ward. Patient has a long-standing history of reflux symptoms. Patient recently underwent EGD and found to have evidence of esophagitis. Patient has a past medical history of GERD, iron deficiency anemia, migraines, hiatal hernia, cholecystectomy, ORIF of the right leg with frank placement, D&C and right eye surgery for glaucoma. Patient is currently on every day smoker. Patient denies significant history for blood clots or irregular heart rhythm. At this time patient is resting comfortably in bed. Patient is having some discomfort post surgery. Patient denies shortness of breath. Patient denies nausea vomiting or diarrhea. Patient denies any urinary burning or frequency. On 05/03/2019 patient was seen and examined on the medical floor she is alert and oriented 3 in no apparent distress she is complaining of pressure sensation in the epigastric area otherwise no complaints there is no fever or chills no headache or dizziness no chest pain no shortness of breath no cough no nausea or vomiting no abdominal pain no diarrhea and no urinary symptoms Objective - Vital Signs Vital signs: Vital Signs Temp 97.6 F 05/03/19 07:00 Pulse 68 05/03/19 07:00 Resp 18 05/03/19 07:00 BP 143/84 05/03/19 07:00 Pulse Ox 99 05/03/19 07:00 Intake & Output 05/02/19 05/03/19 05/03/19 18:59 06:59 18:59 Intake Total 1295 1300 Output Total 370 700 Balance 925 600 Weight 86.183 kg Intake: IV 1175 Oral 120 1300 Output: Urine 350 700 Estimated Blood Loss 20 Other: Voiding Method Toilet # Voids 3 - Exam In general patient is alert and oriented 3 in no apparent distress Head normocephalic and atraumatic Neck supple no JVD no goiter Lungs clear to auscultation bilaterally no wheezing or crackles Heart regular rate and rhythm S1-S2, no rub or gallop Abdomen is soft nontender nondistended positive bowel sounds no hepatosplenomegaly Extremities no edema Neuro no gross focal deficit - Labs CBC & Chem 7: 05/03/19 07:20 05/03/19 07:20 Labs: Abnormal Lab Results - Last 24 Hours (Table) 05/02/19 05/03/19 05/03/19 Range/Units 12:55 07:20 07:20 RBC 3.78 L (3.80-5.40) m/uL Hgb 8.2 L (11.4-16.0) gm/dL Hct 29.4 L (34.0-46.0) % MCV 77.9 L (80.0-100.0) fL MCH 21.6 L (25.0-35.0) pg MCHC 27.7 L (31.0-37.0) g/dL RDW 18.7 H (11.5-15.5) % Chloride 108 H (98-107) mmol/L BUN 6 L (7-17) mg/dL Glucose 141 H 105 H (74-99) mg/dL Assessment and Plan Plan: 1. Reflux esophagitis status post left septic Niesen fundoplication with Dr. Ward. Patient is currently postop day 1. Paloma clear liquid diet has been ordered 2. History of iron deficiency anemia 3. History of seasonal ALLERGIES 4. History of migraines 5. Nicotine dependence. Patient educated greater than 3 minutes on smoking cessation. Nicotine patch has been ordered 6. History of hiatal hernia 7. History of cholecystectomy 8. History of ORIF of the right leg with frank placement 9. History of D&C 10. History of right eye surgery for carcoma 11. Daily marijuana use DVT prophylaxis Lovenox Patient is stable awaiting evaluation today by surgery
[2019-05-03] MEDS ORDERED: MAG HYDROX/AL HYDROX/SIMETH 30 ML, HYOSCYAMINE ELIXIR 10 ML, LIDOCAINE VISCOUS 2% 10 ML PO ONE ×3 (14:00)
--- NOTE | 2019-05-03 14:05 | P.PN ---
Subjective Progress Note Date: 05/03/19 CHIEF COMPLAINT: GERD HISTORY OF PRESENT ILLNESS: The patient is a 48-year-old female postop day 1 status post hiatal hernia repair, 05/02/19. She is tolerating diet. She has espohageal spasms. ROS: No reports of nausea and vomiting. No bowel movements. No fevers or chills. No productive sputum PHYSICAL EXAM: VITAL SIGNS: Reviewed CONSTITUTIONAL: Well developed and in no acute distress. EYES: Conjuctivae without sclera icterus. Extraocular movements grossly intact. HEAD, EARS, NOSE, THROAT: Moist buccal mucosa. Head is atraumatic, normocephalic. Hears conversational speech. No nasal drainage. NECK: Supple. No thyroidomegaly. RESPIRATORY: Non-labored respirations and equal bilateral excursions. CARDIOVASCULAR: Palpable 2+ radial pulses. Regular rate. Regular rhythm. ABDOMEN: Incisions clean dry and intact. Soft. No peritonitis. MUSCULOSKELETAL: No gross deformity of the lower extremities noted. No clubbing. No cyanosis. SKIN: Good skin turgor. Well perfused. NEUROLOGIC: Cranial nerves I through XII grossly intact. No focal or lateralizing signs. PSYCH: Appropriate affect. Alert and oriented to person, place and time. CLINCAL LABS: White blood cell count normal. Electrolytes normal. STUDIES: Esophagram reviewed with mild obstruction. No recurrent hernia. ASSESSMENT: 1. GERD PLAN: 1. Discharge instructions reviewed. 2. GI cocktail for now and warm beverages advised for home discharge. 3. Avoidance of straws and carbonated beverages. Objective - Vital Signs Vital signs: Vital Signs Temp 97.6 F 05/03/19 07:00 Pulse 68 05/03/19 07:00 Resp 18 05/03/19 07:00 BP 143/84 05/03/19 07:00 Pulse Ox 99 05/03/19 07:00 Intake & Output 05/02/19 05/03/19 05/03/19 18:59 06:59 18:59 Intake Total 1295 1300 Output Total 370 700 Balance 925 600 Weight 86.183 kg Intake: IV 1175 Oral 120 1300 Output: Urine 350 700 Estimated Blood Loss 20 Other: Voiding Method Toilet # Voids 3 2 - Labs CBC & Chem 7: 05/03/19 07:20 05/03/19 07:20 Labs: Abnormal Lab Results - Last 24 Hours (Table) 05/03/19 05/03/19 Range/Units 07:20 07:20 RBC 3.78 L (3.80-5.40) m/uL Hgb 8.2 L (11.4-16.0) gm/dL Hct 29.4 L (34.0-46.0) % MCV 77.9 L (80.0-100.0) fL MCH 21.6 L (25.0-35.0) pg MCHC 27.7 L (31.0-37.0) g/dL RDW 18.7 H (11.5-15.5) % BUN 6 L (7-17) mg/dL Glucose 105 H (74-99) mg/dL Assessment and Plan (1) Gastroesophageal reflux disease Status: Acute Code(s): K21.9 - GASTRO-ESOPHAGEAL REFLUX DISEASE WITHOUT ESOPHAGITIS SNOMED Code(s): 805263565 (2) Hiatal hernia Status: Acute Code(s): K44.9 - DIAPHRAGMATIC HERNIA WITHOUT OBSTRUCTION OR GANGRENE SNOMED Code(s): 64285015
== END 2019-05-03 14:55 | disposition home or self-care (01) ==
LOC: OR 08:06 → 6PED 10:36 → OR 05-03 14:55
PROVIDERS: ATTEND Surgery
DX: K44.9 Diaphragmatic hernia without obstruction or gangrene (principal); K21.0 Gastro-esophageal reflux disease with esophagitis; D50.9 Iron deficiency anemia, unspecified; G43.909 Migraine, unspecified, not intractable, without status migrainosus; Z90.49 Acquired absence of other specified parts of digestive tract; F17.200 Nicotine dependence, unspecified, uncomplicated; Z79.899 Other long term (current) drug therapy
CPT/HCPCS: 81025; 80053 ×2; 85025 ×2; 74210; 43280; J2250; J1644; J1100; J2710; J0690; J2405; J2001; J1650; J3010; J1170 ×2; J0330; J2704; Q9967

== ENCOUNTER 2019-08-04 23:29 | Emergency (ER) | payer OTHER ==
[2019-08-04 23:58] VITALS: TEMP 98.2
[2019-08-05] MEDS ORDERED: PANTOPRAZOLE 40 MG/10 ML VIAL IVP STA (00:10)
[2019-08-05] MEDS ORDERED: MECLIZINE 12.5 MG TAB PO STA (00:11)
--- NOTE | 2019-08-05 00:18 | ED ---
General Adult HPI - General Chief complaint: Dizziness Stated complaint: dizziness Time Seen by Provider: 08/05/19 00:00 Source: patient, RN notes reviewed, old records reviewed Mode of arrival: ambulatory Limitations: no limitations - History of Present Illness Initial comments: 49-year-old female patient presented to ED for chief complaint of vertigo jamie cotton. Patient reports that she felt that she was menopausal and has not had a menstrual cycle in some time. However approximately 4 days ago she developed a heavy menstrual cycle. Patient was that she has a history of anemia. Questions if she is anemic at this time. Patient reports that earlier today she began feeling as if the room was spinning about her. Denies any trauma to head or neck. Patient also complains of some epigastric burning. Patient reports that she does have a partial hernia which was operated on. Patient force that feels a burning pain similar to when I wasn't demanding causing her discomfort. Patient denies any complaints at this time. Systemic: Pt denies fatigue, fever/chills, rash. Pt denies weakness, night sweats, weight loss. Neuro: Pt denies headache, visual disturbances, syncope or pre-syncope. HEENT: Pt denies ocular discharge or irritation, otalgia, rhinorrhea, pharyngitis or notable lymphadenopathy. Cardiopulmonary: Pt denies chest pain, SOB, heart palpitations, dyspnea on exertion. Abdominal/GI: Pt denies abdominal pain, n/v/d. : Pt denies dysuria, burning w/ urination, frequency/urgency. Denies new onset urinary or bowel incontinence. MSK: Pt denies myalgia, loss of strength or function in extremities. Neuro: Pt denies new onset weakness, paresthesias. - Related Data Home Medications Medication Instructions Recorded Confirmed Ferrous Sulfate [Feosol] 325 mg PO TID 06/01/16 05/02/19 Loratadine 10 mg PO QAM 04/11/19 05/02/19 Pantoprazole [Protonix] 40 mg PO QAM 04/11/19 05/02/19 Previous Rx's Medication Instructions Recorded Ibuprofen [Motrin] 600 mg PO Q6HR PRN #30 tab 08/06/18 Hydrocodone/Acetaminophen [Pease 1 tab PO Q6HR PRN 3 Days #12 tab 05/02/19 5-325] Meclizine [Antivert] 25 mg PO Q6H PRN #20 tab 08/05/19 Pantoprazole Sodium [Protonix] 20 mg PO Q24HR 14 Days #14 08/05/19 tablet. Allergies Allergy/AdvReac Type Severity Reaction Status Date / Time No Known Allergies Allergy Verified 08/04/19 23:58 Review of Systems ROS Statement: Those systems with pertinent positive or pertinent negative responses have been documented in the HPI. ROS Other: All systems not noted in ROS Statement are negative. Past Medical History Past Medical History: GERD/Reflux Additional Past Medical History / Comment(s): FREQUENT LOW IRON COUNTS. MIGRAIN ES. ANEMIA. hiatal hernia, History of Any Multi-Drug Resistant Organisms: None Reported Past Surgical History: Cholecystectomy, Hernia Repair, Orthopedic Surgery Additional Past Surgical History / Comment(s): ORIF Right Leg-Aguila Placed, D&C, rt eye surgery for glaucoma Past Anesthesia/Blood Transfusion Reactions: No Reported Reaction Past Psychological History: No Psychological Hx Reported Smoking Status: Current every day smoker Past Alcohol Use History: Occasional Past Drug Use History: None Reported - Past Family History Mother Family Medical History: No Reported History General Exam - General Exam Comments Initial Comments: Constitutional: NAD, AOX3, Pt has pleasant affect. HEENT: NC/AT, trachea midline, neck supple, no lymphadenopathy. Posterior pha rynx non erythematous, without exudates. External ears appear normal, without discharge. TM pale masterson bilaterally. Mucous membranes moist. Eyes PERRLA, EOM intact. There is no scleral icterus. No pallor noted. Cardiopulmonary: RRR, no murmurs, rubs or gallops, no JVD noted. Lungs CTAB in anterior and posterior hopkins. No peripheral edema. Abdominal exam: Abdomen soft and non-distended. Abdomen mildly tender to palpation in epigastric region. Bowel sounds active in LLQ. No hepatosplenomegaly. No ecchymosis Neuro: CN II-XII intact. No nuchal rigidity. No raccon eyes, no pearce sign, no hemotympanum. No cervical spinal tenderness. NIH 0. MSK: No posterior calf tenderness bilaterally, homans sign negative bilaterally. Posterior tibialis and radial pulse +2 bilaterally. Sensation intact in upper and lower extremities. Full active ROM in upper and lower extremities, 5/5 stregnth. Limitations: no limitations Course Vital Signs 08/04/19 23:56 Temperature 98.2 F Pulse Rate 70 Respiratory 20 Rate Blood Pressure 155/96 O2 Sat by Pulse 100 Oximetry Medical Decision Making - Medical Decision Making 49-year-old female patient presented to ED for chief complaint of vertigo sensation. Patient reports that she felt that she was menopausal and has not had a menstrual cycle in some time. However approximately 4 days ago she developed a heavy menstrual cycle. Patient was that she has a history of anemia. Questions if she is anemic at this time. Patient reports that earlier today she began feeling as if the room was spinning about her. Denies any trauma to head or neck. Patient also complains of some epigastric burning. Patient reports that she does have a history of hiatal hernia which was operated on. Patient reports that feels a burning pain similar to what was causing her discomfort. Patient denies any complaints at this time. Patient will signs are stable, afebrile. Physical exam displayed mild amount epigastric tenderness. Neurologic exam was within normal limits. NIH is 0. Laboratory investigations did reveal anemia of 8.2 which is around baseline. Chemistries are negative. UA contaminated squamous epithelial cells. EKG nonischemic. Patient reports the vertigo sensation resolved with Antivert. Also reports that the burning and epigastric region resolved with Protonix. Patient discharged with prescription for Protonix and meclizine. Patient will follow-up with primary care provider. Patient to follow up with [facility] have outpatient transvaginal ultrasound for postmenopausal or perimenopausal bleed. Case discussed with Dr. Monsalve. - Lab Data Result diagrams: 08/05/19 00:36 08/05/19 00:36 Lab Results 08/05/19 08/05/19 08/05/19 Range/Units 00:36 00:36 00:36 WBC 6.3 (3.8-10.6) k/uL RBC 3.77 L (3.80-5.40) m/uL Hgb 8.2 L (11.4-16.0) gm/dL Hct 29.0 L (34.0-46.0) % MCV 77.1 L (80.0-100.0) fL MCH 21.8 L (25.0-35.0) pg MCHC 28.2 L (31.0-37.0) g/dL RDW 20.8 H (11.5-15.5) % Plt Count 294 (150-450) k/uL Neutrophils % 59 % Lymphocytes % 33 % Monocytes % 3 % Eosinophils % 2 % Basophils % 0 % Neutrophils # 3.7 (1.3-7.7) k/uL Lymphocytes # 2.1 (1.0-4.8) k/uL Monocytes # 0.2 (0-1.0) k/uL Eosinophils # 0.1 (0-0.7) k/uL Basophils # 0.0 (0-0.2) k/uL Hypochromasia Marked Poikilocytosis Slight Anisocytosis Moderate Microcytosis Moderate Sodium 139 (137-145) mmol/L Potassium 3.7 (3.5-5.1) mmol/L Chloride 109 H (98-107) mmol/L Carbon Dioxide 26 (22-30) mmol/L Anion Gap 4 mmol/L BUN 8 (7-17) mg/dL Creatinine 0.60 (0.52-1.04) mg/dL Est GFR (CKD-EPI)AfAm >90 (>60 ml/min/1.73 sqM) Est GFR (CKD-EPI)NonAf >90 (>60 ml/min/1.73 sqM) Glucose 94 (74-99) mg/dL Calcium 8.6 (8.4-10.2) mg/dL Total Bilirubin 0.4 (0.2-1.3) mg/dL AST 24 (14-36) U/L ALT 8 (4-34) U/L Alkaline Phosphatase 62 (38-126) U/L Total Protein 6.6 (6.3-8.2) g/dL Albumin 3.6 (3.5-5.0) g/dL Urine Color Urine Appearance (Clear) Urine pH (5.0-8.0) Ur Specific [place] (1.001-1.035) Urine Protein (Negative) Urine Glucose (UA) (Negative) Urine Ketones (Negative) Urine Blood (Negative) Urine Nitrite (Negative) Urine Bilirubin (Negative) Urine Urobilinogen (<2.0) mg/dL Ur Leukocyte Esterase (Negative) Urine RBC (0-5) /hpf Urine WBC (0-5) /hpf Ur Squamous Epith Cells (0-4) /hpf Urine Bacteria (None) /hpf Urine Mucus (None) /hpf Urine HCG, Qual Not Detected (Not Detectd) 08/05/19 Range/Units 00:36 WBC (3.8-10.6) k/uL RBC (3.80-5.40) m/uL Hgb (11.4-16.0) gm/dL Hct (34.0-46.0) % MCV (80.0-100.0) fL MCH (25.0-35.0) pg MCHC (31.0-37.0) g/dL RDW (11.5-15.5) % Plt Count (150-450) k/uL Neutrophils % % Lymphocytes % % Monocytes % % Eosinophils % % Basophils % % Neutrophils # (1.3-7.7) k/uL Lymphocytes # (1.0-4.8) k/uL Monocytes # (0-1.0) k/uL Eosinophils # (0-0.7) k/uL Basophils # (0-0.2) k/uL Hypochromasia Poikilocytosis Anisocytosis Microcytosis Sodium (137-145) mmol/L Potassium (3.5-5.1) mmol/L Chloride (98-107) mmol/L Carbon Dioxide (22-30) mmol/L Anion Gap mmol/L BUN (7-17) mg/dL Creatinine (0.52-1.04) mg/dL Est GFR (CKD-EPI)AfAm (>60 ml/min/1.73 sqM) Est GFR (CKD-EPI)NonAf (>60 ml/min/1.73 sqM) Glucose (74-99) mg/dL Calcium (8.4-10.2) mg/dL Total Bilirubin (0.2-1.3) mg/dL AST (14-36) U/L ALT (4-34) U/L Alkaline Phosphatase (38-126) U/L Total Protein (6.3-8.2) g/dL Albumin (3.5-5.0) g/dL Urine Color Yellow Urine Appearance Cloudy H (Clear) Urine pH 6.0 (5.0-8.0) Ur Specific [place] 1.020 (1.001-1.035) Urine Protein 1+ H (Negative) Urine Glucose (UA) Negative (Negative) Urine Ketones Negative (Negative) Urine Blood Moderate H (Negative) Urine Nitrite Negative (Negative) Urine Bilirubin Negative (Negative) Urine Urobilinogen 2.0 (<2.0) mg/dL Ur Leukocyte Esterase Moderate H (Negative) Urine RBC 89 H (0-5) /hpf Urine WBC 17 H (0-5) /hpf Ur Squamous Epith Cells 34 H (0-4) /hpf Urine Bacteria Occasional H (None) /hpf Urine Mucus Many H (None) /hpf Urine HCG, Qual (Not Detectd) - EKG Data -: EKG Interpreted by Me (and Dr. Monsalve) EKG Comments: Ventricular rate 58, painful 150, QRS 80, QT/QTc 416/48. Sinus bradycardia, otherwise normal EKG. No concern for acute ischemia. Disposition Clinical Impression: Vertigo, Abnormal perimenopausal bleeding, Anemia, Gastroesophageal reflux dise ase Disposition: HOME SELF-CARE Condition: Stable Instructions (If sedation given, give patient instructions): Vertigo (ED) Additional Instructions: Follow-up with primary care provider tomorrow. Take medication as directed. Use Antivert only has needed for vertigo sensation. Take Protonix as directed. Follow-up with primary care provider tomorrow. Follow-up with [facility] and have a transvaginal ultrasound on an outpatient basis to evaluate perimenopausal bleeding. Return to ER if condition worsens in any way. Prescriptions: Meclizine [Antivert] 25 mg PO Q6H PRN #20 tab PRN Reason: Dizziness Pantoprazole Sodium [Protonix] 20 mg PO Q24HR 14 Days #14 tablet.dr Is patient prescribed a controlled substance at d/c from ED?: No Referrals: Kevin Connell MD [Primary Care Provider] - 1-2 days
[2019-08-05 00:53] LABS: Anisocytosis Moderate; Basophils % (A) 0 %; Eosinophils # (A) 0.1 k/uL (0-0.7); Eosinophils % (A) 2 %; HGB 8.2 gm/dL (11.4-16.0); Hypochromasia Marked; Lymphocytes # (A) 2.1 k/uL (1.0-4.8); Lymphocytes % (A) 33 %; MCH 21.8 pg (25.0-35.0); MCHC 28.2 g/dL (31.0-37.0); MCV 77.1 fL (80.0-100.0); Mean Platelet Volume 7.9; Microcytosis Moderate; Monocytes # (A) 0.2 k/uL (0-1.0); Monocytes % (A) 3 %; Neutrophils # (A) 3.7 k/uL (1.3-7.7); Neutrophils % (A) 59 %; Platelet Count 294 k/uL (150-450); Poikilocytosis Slight; RBC 3.77 m/uL (3.80-5.40); RDW 20.8 % (11.5-15.5); WBC 6.3 k/uL (3.8-10.6)
[2019-08-05 00:59] LABS: Appearance,Urine Cloudy (Clear); Bacteria,Urine Occasional /hpf; Bilirubin,Urine Negative (Negative); Blood,Urine Moderate (Negative); Color,Urine Yellow; Glucose,Urine (UA) Negative (Negative); Ketones,Urine Negative (Negative); Leukocyte Esterase,Urine Moderate (Negative); Mucus,Urine Many /hpf; Nitrite,Urine Negative (Negative); Protein,Urine 1+ (Negative); RBC,Urine 89 /hpf (0-5); Squamous Epithelial Cell,Urine 34 /hpf (0-4); WBC,Urine 17 /hpf (0-5)
[2019-08-05 01:03] LABS: ALT 8 U/L (4-34); AST 24 U/L (14-36); African American GFR (CKD) >90 (>60 ml/min/1.73 sqM); Albumin 3.6 g/dL (3.5-5.0); Alkaline Phosphatase 62 U/L (38-126); Anion Gap 4 mmol/L; Blood Urea Nitrogen 8 mg/dL (7-17); Calcium 8.6 mg/dL (8.4-10.2); Carbon Dioxide 26 mmol/L (22-30); Chloride 109 mmol/L (98-107); Glucose 94 mg/dL (74-99); Non-African American GFR(CKD) >90 (>60 ml/min/1.73 sqM); Potassium 3.7 mmol/L (3.5-5.1); Sodium 139 mmol/L (137-145); Total Bilirubin 0.4 mg/dL (0.2-1.3); Total Protein 6.6 g/dL (6.3-8.2)
[2019-08-05 02:21] VITALS: BP 141/98; PULSE 68; RESP 18
== END 2019-08-05 02:21 | disposition home or self-care (01) ==
LOC: EC 23:29
DX: N92.4 Excessive bleeding in the premenopausal period (principal); D64.9 Anemia, unspecified; K21.9 Gastro-esophageal reflux disease without esophagitis; F17.200 Nicotine dependence, unspecified, uncomplicated; Z87.19 Personal history of other diseases of the digestive system; Z79.899 Other long term (current) drug therapy
CPT/HCPCS: 36415; 93005; 80053; 85025; 81001; 81025; 87086; 99284; 96374; C9113

== ENCOUNTER → 2019-08-14 | Outpatient (CLI) | payer OTHER ==
--- NOTE | 2019-08-14 15:13 | US ---
EXAMINATION TYPE: US pelvis complete transvag DATE OF EXAM: 08/14/2019 COMPARISON: US 06/25/2018 CLINICAL HISTORY: N93.9 Abnormal uterine and vaginal bleeding. Patient has not had a cycle in about 6 months. Heavy bleeding with clotting July 2018 TECHNIQUE: . Transabdominal sonographic images of the pelvis were acquired. Transvaginal sonographi c images were medically necessary to better assess the following anatomy: Uterus and endometrium Date of LMP: 6 months ago EXAM MEASUREMENTS: Uterus: 8.6 x 5.7 x 6.0 cm Endometrial Stripe: 2.7 cm Right Ovary: 2.6 x 1.4 x 2.3 cm Left Ovary: 2.0 x 1.4 x 2.0 cm 1. Uterus: Retroverted Heterogeneous myometrium. Hypoechoic area measuring 1.4 x 1.2 x 1.0 cm 2. Endometrium: Not well defined. 3. Right Ovary: wnl 4. Left Ovary: wnl 5. Bilateral Adnexa: wnl 6. Posterior cul-de-sac: wnl IMPRESSION: The myometrium is heterogeneous. There may be fibroid uterus. Difficult to exclude endome trial thickening versus local fibroid with mass effect on the endometrium. Consider [employer] consult, pelv ic MRI could be performed for better evaluation.
== END | disposition home or self-care (01) ==
LOC: RADUSWWP 14:24
PROVIDERS: ATTEND Internal Medicine
DX: N93.9 Abnormal uterine and vaginal bleeding, unspecified (principal)
CPT/HCPCS: 76830; 76856

== ENCOUNTER 2019-08-20 11:02 | Emergency (ER) | payer OTHER ==
[2019-08-20] MEDS ORDERED: ONDANSETRON 4 MG/2 ML VIAL IVP STA (12:32)
[2019-08-20] MEDS ORDERED: IOPAMIDOL CONTRAST (ORAL USE) VIAL PO PRN (12:32)
--- NOTE | 2019-08-20 12:35 | ED ---
General Adult HPI - General Chief complaint: Abdominal Pain Stated complaint: "I was sent to see Dr Ward" Time Seen by Provider: 08/20/19 11:45 Source: patient, RN notes reviewed, old records reviewed Mode of arrival: ambulatory Limitations: no limitations - History of Present Illness Initial comments: This is a 49-year-old female who presents emergency Department status post fundoplication April. Patient states for the last week she's been having epigastric abdominal pain and nausea. Patient states she's also had quite a bit of diarrhea over that time.. Patient states she's had no fever or chills. Patient states she's not been lightheaded or dizzy. Patient denies any chest pain or difficulty breathing. Patient states her primary medical care doctor told her come the emergency department to have a CAT scan and then have Dr. Ward contacted. Patient states while lying here she's only in mild pain. Patient also has had a cholecystectomy and does not drink a lot of alcohol. - Related Data Home Medications Medication Instructions Recorded Confirmed Ferrous Sulfate [Feosol] 325 mg PO DAILY 06/01/16 08/20/19 Loratadine 10 mg PO QAM PRN 04/11/19 08/20/19 Docusate [Colace] 100 mg PO DAILY PRN 08/20/19 08/20/19 Pantoprazole Sodium [Protonix] 20 mg PO DAILY 08/20/19 08/20/19 Previous Rx's Medication Instructions Recorded Meclizine [Antivert] 25 mg PO Q6H PRN #20 tab 08/05/19 Allergies Allergy/AdvReac Type Severity Reaction Status Date / Time No Known Allergies Allergy Verified 08/20/19 14:15 Review of Systems ROS Statement: Those systems with pertinent positive or pertinent negative responses have been documented in the HPI. ROS Other: All systems not noted in ROS Statement are negative. Past Medical History Past Medical History: GERD/Reflux Additional Past Medical History / Comment(s): FREQUENT LOW IRON COUNTS. MIGRAINES. ANEMIA. hiatal hernia, History of Any Multi-Drug Resistant Organisms: None Reported Past Surgical History: Cholecystectomy, Hernia Repair, Orthopedic Surgery Additional Past Surgical History / Comment(s): ORIF Right Leg-Aguila Placed, D&C, rt eye surgery for glaucoma Past Anesthesia/Blood Transfusion Reactions: No Reported Reaction Past Psychological History: No Psychological Hx Reported Smoking Status: Current every day smoker Past Alcohol Use History: Occasional Past Drug Use History: None Reported - Past Family History Mother Family Medical History: No Reported History General Exam - General Exam Comments Initial Comments: GENERAL: Patient is well-developed and well-nourished. Patient is nontoxic and well-h ydrated and is in mild. ENT: Neck is soft and supple. No significant lymphadenopathy is noted. Oropharynx is clear. Moist mucous membranes. Neck has full range of motion without eliciting any pain. EYES: The sclera were anicteric and conjunctiva were pink and moist. Extraocular movements were intact and pupils were equal round and reactive to light. Eyelids were unremarkable. PULMONARY: Unlabored respirations. Good breath sounds bilaterally. No audible rales rhonchi or wheezing was noted. CARDIOVASCULAR: There is a regular rate and rhythm without any murmurs gallops or rubs. ABDOMEN: Patient has minimal epigastric abdominal pain. SKIN: Skin is clear with no lesions or rashes and otherwise unremarkable. NEUROLOGIC: Patient is alert and oriented x3. Cranial nerves II through XII are grossly intact. Motor and sensory are also intact. Normal speech, volume and content. Symmetrical smile. MUSCULOSKELETAL: Normal extremities with adequate strength and full range of motion. No lower extremity swelling or edema. No calf tenderness. LYMPHATICS: No significant lymphadenopathy is noted PSYCHIATRIC: Normal psychiatric evaluation. Limitations: no limitations Course Vital Signs 08/20/19 11:47 Temperature 97.9 F Pulse Rate 66 Respiratory 16 Rate Blood Pressure 152/92 O2 Sat by Pulse 100 Oximetry Medical Decision Making - Medical Decision Making EKG shows sinus bradycardia 54 bpm NM interval 168 QRSs 86 QT interval 448 QTC is 424 per patient's EKG shows no ST segment elevation or depression or T wave abnormalities are noted. CT showed thickened bladder wall as well as possible fibroids in the uterus which the patient is already aware of and following up for. Patient also to focal area of colonic thickening. Patient is comfortable following up with Dr. Ward. - Lab Data Result diagrams: 08/20/19 12:50 08/20/19 12:50 Lab Results 08/20/19 08/20/19 08/20/19 Range/Units 12:50 12:50 12:50 WBC 7.8 (3.8-10.6) k/uL RBC 4.23 (3.80-5.40) m/uL Hgb 9.2 L (11.4-16.0) gm/dL Hct 33.1 L (34.0-46.0) % MCV 78.2 L (80.0-100.0) fL MCH 21.7 L (25.0-35.0) pg MCHC 27.8 L (31.0-37.0) g/dL RDW 19.8 H (11.5-15.5) % Plt Count 321 (150-450) k/uL Neutrophils % 64 % Lymphocytes % 25 % Monocytes % 4 % Eosinophils % 3 % Basophils % 2 % Neutrophils # 5.0 (1.3-7.7) k/uL Lymphocytes # 1.9 (1.0-4.8) k/uL Monocytes # 0.3 (0-1.0) k/uL Eosinophils # 0.2 (0-0.7) k/uL Basophils # 0.2 (0-0.2) k/uL Hypochromasia Marked Poikilocytosis Slight Anisocytosis Slight Microcytosis Slight Sodium 139 (137-145) mmol/L Potassium 4.7 (3.5-5.1) mmol/L Chloride 107 (98-107) mmol/L Carbon Dioxide 23 (22-30) mmol/L Anion Gap 9 mmol/L BUN 7 (7-17) mg/dL Creatinine 0.67 (0.52-1.04) mg/dL Est GFR (CKD-EPI)AfAm >90 (>60 ml/min/1.73 sqM) Est GFR (CKD-EPI)NonAf >90 (>60 ml/min/1.73 sqM) Glucose 94 (74-99) mg/dL Calcium 9.0 (8.4-10.2) mg/dL Total Bilirubin 0.5 (0.2-1.3) mg/dL AST 29 (14-36) U/L ALT 12 (4-34) U/L Alkaline Phosphatase 63 (38-126) U/L Total Protein 7.7 (6.3-8.2) g/dL Albumin 4.3 (3.5-5.0) g/dL Amylase 76 (30-110) U/L Lipase 66 (23-300) U/L Urine Color Yellow Urine Appearance Clear (Clear) Urine pH 6.5 (5.0-8.0) Ur Specific [place] 1.016 (1.001-1.035) Urine Protein Negative (Negative) Urine Glucose (UA) Negative (Negative) Urine Ketones Negative (Negative) Urine Blood Negative (Negative) Urine Nitrite Negative (Negative) Urine Bilirubin Negative (Negative) Urine Urobilinogen <2.0 (<2.0) mg/dL Ur Leukocyte Esterase Negative (Negative) Disposition Clinical Impression: Abdominal pain, Fibroid Disposition: HOME SELF-CARE Condition: Good Instructions (If sedation given, give patient instructions): Abdominal Pain (ED) Is patient prescribed a controlled substance at d/c from ED?: No Referrals: Kevin Connell MD [Primary Care Provider] - 1-2 days Delgado Ward MD [STAFF PHYSICIAN] - 1-2 days Time of Disposition: 14:42
[2019-08-20 13:07] LABS: Appearance,Urine Clear (Clear); Bilirubin,Urine Negative (Negative); Blood,Urine Negative (Negative); Color,Urine Yellow; Glucose,Urine (UA) Negative (Negative); Ketones,Urine Negative (Negative); Leukocyte Esterase,Urine Negative (Negative); Nitrite,Urine Negative (Negative); PH, Urine 6.5 (5.0-8.0); Protein,Urine Negative (Negative); Specific Gravity,Urine 1.016 (1.001-1.035); Urobilinogen,Urine <2.0 mg/dL (<2.0)
[2019-08-20 13:10] LABS: ALT 12 U/L (4-34); AST 29 U/L (14-36); African American GFR (CKD) >90 (>60 ml/min/1.73 sqM); Albumin 4.3 g/dL (3.5-5.0); Alkaline Phosphatase 63 U/L (38-126); Amylase 76 U/L (30-110); Anion Gap 9 mmol/L; Blood Urea Nitrogen 7 mg/dL (7-17); Carbon Dioxide 23 mmol/L (22-30); Chloride 107 mmol/L (98-107); Glucose 94 mg/dL (74-99); Non-African American GFR(CKD) >90 (>60 ml/min/1.73 sqM); Potassium 4.7 mmol/L (3.5-5.1); Sodium 139 mmol/L (137-145); Total Bilirubin 0.5 mg/dL (0.2-1.3); Total Protein 7.7 g/dL (6.3-8.2)
[2019-08-20 13:12] LABS: Anisocytosis Slight; Basophils # (A) 0.2 k/uL (0-0.2); Basophils % (A) 2 %; Eosinophils # (A) 0.2 k/uL (0-0.7); Eosinophils % (A) 3 %; HCT 33.1 % (34.0-46.0); HGB 9.2 gm/dL (11.4-16.0); Hypochromasia Marked; Lymphocytes # (A) 1.9 k/uL (1.0-4.8); Lymphocytes % (A) 25 %; MCH 21.7 pg (25.0-35.0); MCHC 27.8 g/dL (31.0-37.0); MCV 78.2 fL (80.0-100.0); Mean Platelet Volume 8.1; Microcytosis Slight; Monocytes # (A) 0.3 k/uL (0-1.0); Monocytes % (A) 4 %; Neutrophils % (A) 64 %; Platelet Count 321 k/uL (150-450); Poikilocytosis Slight; RBC 4.23 m/uL (3.80-5.40); RDW 19.8 % (11.5-15.5); WBC 7.8 k/uL (3.8-10.6)
--- NOTE | 2019-08-20 14:05 | CT ---
EXAMINATION TYPE: CT abdomen pelvis w con DATE OF EXAM: 08/20/2019 COMPARISON: Pelvic ultrasound 08/14/2019 HISTORY: 49-year-old female with abdominal pain TECHNIQUE: Contiguous axial scanning of the abdomen and pelvis following administration of 100 ml Iso kely 300 IV contrast. Delayed images through the kidneys and coronal/sagittal reconstructions perform ed. CT DLP: 1088.9 mGycm Automated exposure control for dose reduction was used. FINDINGS: Heart upper limits of normal in size without pericardial effusion. Prominent dependent atelectasis po sterior lung bases. Liver enlarged measuring 18.8 cm. No focal lesion seen. Portal venous system is patent. No biliary du ctal dilatation. Cholecystectomy clips. Adrenal glands, left kidney, spleen with anterior splenule, pancreas appear within normal limits. Benign 4.4 cm cortical cyst lateral right kidney. Some surgical changes at the GE junction, probable Paloma fundoplication. No dilated small bowel, free fluid, or free air. No mesenteric or retroperitoneal lymphadenopathy. Normal appendix. Unable to exclude focal circumferential wall thickening along the lower ascending co antonia, refer to axial image 60. This could reflect prominent adherent stool. No pericolonic inflammator y change seen. Mild circumferential bladder wall thickening. Bulky uterus is retroverted. Multiple pelvic phleboliths. Mild cul-de-sac and right adnexal free flui d. Both ovaries are visualized. Possible intracavitary or submucosal lesion, reference axial image 62 . Bones: Mild degenerative changes at the hips. Right-sided L5 pars defect and moderate degenerative di sc disease L5-S1. IMPRESSION: 1. MILD CIRCUMFERENCE OF BLADDER WALL THICKENING. CORRELATE TO EXCLUDE CYSTITIS. 2. BULKY RETROVERTED UTERUS. POSSIBLE INTRACAVITARY MASS (AXIAL IMAGE 62). AN INTRACAVITARY OR SUBMUC OSAL FIBROID VERSUS OTHER ENDOMETRIAL LESION ARE POSSIBLE. PLEASE REFER TO RECOMMENDATIONS MADE ON RE CENT 08/14/2019 ULTRASOUND. 3. FOCAL CIRCUMFERENTIAL WALL THICKENING AT THE LOWER ASCENDING COLON, AXIAL IMAGE 60. PROMINENT ADHE RENT STOOL IS POSSIBLE. NEOPLASM SHOULD BE EXCLUDED. DIRECT VISUALIZATION CAN BE PERFORMED.
[2019-08-20 14:55] VITALS: BP 123/74; PULSE 57; RESP 20; TEMP 98.2
== END 2019-08-20 15:06 | disposition home or self-care (01) ==
LOC: EC 11:02
DX: D25.9 Leiomyoma of uterus, unspecified (principal); K21.9 Gastro-esophageal reflux disease without esophagitis; F17.200 Nicotine dependence, unspecified, uncomplicated; Z79.899 Other long term (current) drug therapy; Z90.49 Acquired absence of other specified parts of digestive tract
CPT/HCPCS: 36415; 93005; 80053; 82150; 83690; 85025; 81003; 74177; 99285; 96374; J2405; Q9967

== ENCOUNTER → 2020-03-04 | Outpatient (CLI) | payer OTHER ==
[2020-03-04 15:01] LABS: Anisocytosis Moderate; Basophils # (A) 0.1 k/uL (0-0.2); Basophils % (A) 1 %; Eosinophils # (A) 0.2 k/uL (0-0.7); Eosinophils % (A) 3 %; HCT 29.5 % (34.0-46.0); HGB 7.9 gm/dL (11.4-16.0); Hypochromasia Marked; Lymphocytes # (A) 2.4 k/uL (1.0-4.8); Lymphocytes % (A) 38 %; MCH 20.5 pg (25.0-35.0); MCHC 26.7 g/dL (31.0-37.0); MCV 76.9 fL (80.0-100.0); Mean Platelet Volume 6.8; Microcytosis Moderate; Monocytes # (A) 0.4 k/uL (0-1.0); Monocytes % (A) 6 %; Neutrophils # (A) 3.2 k/uL (1.3-7.7); Neutrophils % (A) 49 %; Platelet Count 410 k/uL (150-450); Poikilocytosis Slight; RBC 3.84 m/uL (3.80-5.40); RDW 20.4 % (11.5-15.5); WBC 6.4 k/uL (3.8-10.6)
[2020-03-04 15:10] LABS: African American GFR (CKD) >90 (>60 ml/min/1.73 sqM); Anion Gap 8 mmol/L; Blood Urea Nitrogen 5 mg/dL (7-17); Calcium 8.7 mg/dL (8.4-10.2); Carbon Dioxide 25 mmol/L (22-30); Chloride 105 mmol/L (98-107); Glucose 86 mg/dL (74-99); Non-African American GFR(CKD) >90 (>60 ml/min/1.73 sqM); Potassium 4.5 mmol/L (3.5-5.1); Sodium 138 mmol/L (137-145)
== END | disposition home or self-care (01) ==
LOC: LABPAT 14:08
PROVIDERS: ATTEND Obstetrics & Gynecology
DX: Z01.818 Encounter for other preprocedural examination (principal)
CPT/HCPCS: 36415; 80048; 85025

== ENCOUNTER 2020-03-11 06:02 | Observation (INO) | payer OTHER ==
[2020-03-04 17:34] VITALS: BMI 32.8
[~2020-03-11 06:02] MED LIST changes: -HEPARIN SODIUM,PORCINE 5,000 UNIT/ML 1 ML VIAL SQ ONE; +HYDROmorphone 0.5 MG/0.5 ML SYRINGE IVP PRN; -LACTATED RINGERS 1,000 ML IV SCH; -LIDOCAINE 1% 20 ML VIAL (10MG/ML) FOR IV START INTRADERMA PRN; -MIDAZOLAM 2 MG/2 ML VIAL IV PRN; +Pre Op ABX Message 1 EACH MISC MISCELLANE ONE; -SCOPOLAMINE 1.5MG/72HR PATCH TRANSDERM ONE
[2020-03-11] MEDS ORDERED: ONDANSETRON 4 MG/2 ML VIAL ONE (06:34)
[2020-03-11] MEDS: LACTATED RINGERS 1,000 ML IV SCH ×2 (06:40→13:04)
[2020-03-11 06:59] LABS: Anisocytosis Moderate; Basophils % (A) 1 %; Eosinophils # (A) 0.1 k/uL (0-0.7); Eosinophils % (A) 3 %; HCT 28.8 % (34.0-46.0); Hypochromasia Marked; Lymphocytes # (A) 2.5 k/uL (1.0-4.8); Lymphocytes % (A) 50 %; MCH 20.6 pg (25.0-35.0); MCHC 27.8 g/dL (31.0-37.0); MCV 73.9 fL (80.0-100.0); Mean Platelet Volume 6.5; Microcytosis Moderate; Monocytes # (A) 0.3 k/uL (0-1.0); Monocytes % (A) 6 %; Neutrophils # (A) 1.9 k/uL (1.3-7.7); Neutrophils % (A) 37 %; Platelet Count 363 k/uL (150-450); Poikilocytosis Slight; RBC 3.89 m/uL (3.80-5.40); RDW 20.2 % (11.5-15.5)
--- NOTE | 2020-03-11 07:07 | P.HPOB ---
History of Present Illness H&P Date: 03/11/20 Chief Complaint: Menorrhagia and fibroid uterus Patient is a 49-year-old female with fibroid uterus and heavy vaginal bleeding. Symptoms have been present for a number of months. She continues to also have thickened endometrium on ultrasound. She had D&C done was a polyp only. Symptoms did not nancy and have progressed and gotten worse. She is not a good hormone candidate as she is a smoker and with her chronic pain from the bleeding is unlikely NovaSure would help as this may worsen her pain therefore she is scheduled for robotic-assisted left scopic hysterectomy with bilateral salpingectomy possible GAGAN and possible BSO. Risks/benefits/alternatives to this procedure were reviewed with patient in detail and did include but were not limited to bleeding and infection damage to the bladder including perforation and need for repair damage to ureters with potential need for further surgery damage to the bowel with potential need for further surgery even potentially . Past Medical History Past Medical History: Blood Disorder, Eye Disorder, GERD/Reflux Additional Past Medical History / Comment(s): Freq Low Iron count, Anemia. Glaucoma. Heavy, freq menses. History of Any Multi-Drug Resistant Organisms: None Reported Past Surgical History: Cholecystectomy, Hernia Repair, Orthopedic Surgery Additional Past Surgical History / Comment(s): ORIF Right Leg-Aguila Placed, D&C, Rt eye surgery for glaucoma, Hiatal Hernia repair. EGD, Colonoscopy Past Anesthesia/Blood Transfusion Reactions: No Reported Reaction Smoking Status: Current every day smoker - Past Family History Mother Family Medical History: No Reported History Medications and Allergies Home Medications Medication Instructions Recorded Confirmed Type Ferrous Sulfate [Feosol] 325 mg PO BID 06/01/16 03/04/20 History Loratadine 10 mg PO QAM PRN 04/11/19 03/04/20 History Meclizine [Antivert] 25 mg PO Q6H PRN #20 tab 08/05/19 03/04/20 Rx Pantoprazole Sodium [Protonix] 20 mg PO DAILY PRN 08/20/19 03/04/20 History Ibuprofen [Motrin] 600 mg PO Q8HR PRN 03/04/20 03/04/20 History Allergies Allergy/AdvReac Type Severity Reaction Status Date / Time No Known Allergies Allergy Verified 03/11/20 06:26 Exam Osteopathic Statement: *. No significant issues noted on an osteopathic structural exam other than those noted in the History and Physical/Consult. Vital Signs Temp Pulse Resp BP Pulse Ox 03/11/20 06:35 97.9 F 84 16 100/64 95 Intake and Output 03/10/20 03/11/20 03/11/20 22:59 06:59 14:59 Other: Weight 77.7 kg - OBG Physical Exam Breast: both: normal (no masses) Abdomen: bowel sounds normal, no diffuse tenderness, no bruit present, no guarding noted, no hepatomegaly, no splenomegaly, no mass Vulva: both: normal Vagina: normal moisture, no discharge Cervix: no lesion, no discharge Uterus: normal size, normal contour Adnexa: both: normal Anus/Rectum: normal perianal skin, no rectal mass, no hemorrhoids, heme negative Results Result Diagrams: 03/11/20 06:36 Abnormal Lab Results - Last 24 Hours (Table) 03/11/20 Range/Units 06:36 Hgb 8.0 L (11.4-16.0) gm/dL Hct 28.8 L (34.0-46.0) % MCV 73.9 L (80.0-100.0) fL MCH 20.6 L (25.0-35.0) pg MCHC 27.8 L (31.0-37.0) g/dL RDW 20.2 H (11.5-15.5) %
[2020-03-11] MEDS ORDERED: PHENYLEPHRINE-0.9% NACL SYG 1 MG/10 ML SYRINGE ONE (07:30)
[2020-03-11] MEDS ORDERED: ROCURONIUM BROMIDE 10 MG/ML 5 ML VIAL IV ONE (07:30)
[2020-03-11] MEDS ORDERED: ALBUMIN HUMAN 5% (25gm) 500 ML VIAL IVPB ONE (07:30)
[2020-03-11] MEDS ORDERED: MIDAZOLAM 2 MG/2 ML VIAL ONE (07:30)
[2020-03-11] MEDS ORDERED: NEOSTIGMINE 1 MG/ML 10 ML VIAL ONE (07:30)
[2020-03-11] MEDS ORDERED: SUCCINYLCHOLINE CHLORIDE 100 MG/5 ML SYR IV ONE (07:30)
[2020-03-11] MEDS ORDERED: ETOMIDATE 2 MG/ML 10 ML VIAL ONE (07:30)
[2020-03-11] MEDS ORDERED: GLYCOPYRROLATE 0.2 MG/ML 2 ML VIAL ONE (07:30)
[2020-03-11] MEDS ORDERED: ePHEDrine SULFATE/0.9% NACL/PF 50 MG/5 ML SYRINGE IV ONE (07:30)
[2020-03-11 08:10] LABS: Polychromasia Present; Target Cells Present
[2020-03-11] MEDS ORDERED: BUPIVACAINE (PF) 0.25% 30 ML VIAL SQ ONE ×2 (08:15)
[2020-03-11] MEDS ORDERED: LACTATED RINGERS 1,000 ML IV ONE (08:36)
[2020-03-11] MEDS ORDERED: HYDROcodone/APAP 5-325MG 1 EACH TAB PO PRN (09:06)
[2020-03-11] MEDS ORDERED: PANTOPRAZOLE 40 MG TABLET PO PRN (09:06)
[2020-03-11] MEDS ORDERED: MECLIZINE 25 MG TAB PO PRN (09:06)
[2020-03-11] MEDS ORDERED: LORATADINE 10 MG TAB PO PRN (09:06)
--- NOTE | 2020-03-11 09:12 | P.OP ---
Date of Procedure: 03/11/20 Preoperative Diagnosis: Menorrhagia Postoperative Diagnosis: Same Procedure(s) Performed: Robotic-assisted left scopic hysterectomy with bilateral salpingectomy Anesthesia: JEROME Surgeon: Urbano Everett Accident Examiner #1: Kimberly Mckeon Estimated Blood Loss (ml): 10 IV fluids (ml): 1,500 Urine output (ml): 50 Pathology: other (Uterus, cervix and fallopian tubes) Condition: stable Disposition: floor Operative Findings: pathology pending normal ovaries received 1000 crystalloid and 500 of albumin Description of Procedure: Patient was taken to the operative suite where a general anesthetic was found be adequate. She was prepped and draped in normal sterile fashion placed in dorsal lithotomy position. Initially her blood pressure was low and albumin was ordered by anesthesia. Once blood pressure was in the normal range a weighted speculum was inserted in vagina and anterior lip cervix identified grasped with a single-tooth tenaculum. Uterus was then sounded to 9 cm and cup size 3.5 cm. Sutures were then placed at 3 and 9 and a Susannah manipulator was placed without difficulty. Other incidents were then removed and catheter was placed. Attention was then turned to abdominal portion procedure where we changed gloves and initially quarter percent Marcaine was injected 2 cm above the umbilicus and through this injected anesthetic a 5 mm skin incision was made and through this incision under direct visualization with an optical trocar and sleeve, the camera was placed. Once peritoneal placement was assured gas was allowed to fully insufflate the abdomen and patient's placement very steep Trendelenburg position of 25. Once completed lateral ports were placed 10 cm lateral to the umbilicus just inferior to the umbilicus line bilaterally. Fourth port and sleeve was inserted through a 1 cm incision between the left lateral and medial port and the medial port was then exchanged for a robotic Report. Camera was then brought in and docked once fully docked a scissor was placed in the one arm and [place] in the chart at this point we did break scrub and go to the console. Observations Wishon noted. Uterus was then elevated the left side fallopian tubes identified and mesosalpinx was cauterized and transected to the round ligament. Once this was [id number] ovarian ligament was cauterized and transected the round ligament Dory was then cauterized transected and anterior and posterior leafs the broad ligament were developed moving inferiorly and cauterizing the vascularity on the left centimeters. Bladder flap was then entered sharply and carried across face uterus undermining the tissue with a [place] and incised with the scissor. Bladder was then bluntly dissected out of the operative field. Attention was then turned the right side of the uterus in a similar fashion and was developed. Cauterization of both sides of the uterine vascular was then done and an anterior colpotomy was made. Balloon was then blown up in the Susannah manipulator and following the cup and 3 and 60 fashion counterclockwise cheating head only when necessary to maintain excellent hemostasis the uterus and cervix were removed from the vagina. Once this was completed uterus was brought into the vagina to maintain pneumoperitoneum. Pedicles were hemostatic therefore 20 be lock suture was used then exchanged instruments for a Nilson grasper and a make suture cut and the vaginal cuff was reapproximated. Once completed pelvis was irrigated blood and debris was then removed all pedicles appeared hemostatic and then from therefore all incidents removed gas allowed to expel from the abdomen. 5 deep breaths were provided during this process. At this point I did re-scrub in and a cystoscopy was performed with excellent flow noted from both ureteral jets and Dr. Mckeon close incision subcuticular E with the remaining around the incisions. Sponge, lap, needle counts were all correct 2. Patient was then taken to the recovery room in stable and satisfactory condition.
[2020-03-11] MEDS ORDERED: ACETAMINOPHEN IV (For NPO) 1,000 MG/100 ML VIAL IVPB ONE (09:40)
[2020-03-11] MEDS: ONDANSETRON 4 MG/2 ML VIAL IVP ONE ×2 (10:42→13:06)
[2020-03-11 13:02] LABS: Amphetamine Screen,Urine Not Detected (NotDetected); Barbiturate Screen,Urine Not Detected (NotDetected); Benzodiazepines Screen,Urine Not Detected (NotDetected); Cocaine Screen,Urine Not Detected (NotDetected); Methadone Screen, Urine Not Detected (NotDetected); Opiate Screen,Urine Not Detected (NotDetected); Oxycodone Screen, Urine Not Detected (NotDetected); Phencyclidine Screen,Urine Not Detected (NotDetected); Tricyclic Antidepressant,Urine Not Detected (NotDetected); Urn Cannabinoid Scrn Detected (NotDetected)
[2020-03-11] MEDS: KETOROLAC 15 MG/ML 1 ML VIAL IVP PRN ×2 (13:04→19:58)
[2020-03-11] MEDS ORDERED: ONDANSETRON 4 MG/2 ML VIAL IVP PRN (17:15)
--- NOTE | 2020-03-11 17:35 | P.PN ---
Progress Note - Text Progress Note Date: 03/11/20 Doing well. Complains of incisional tenderness only. We'll continue care. All questions are answered for her at this time.
[2020-03-12 01:42] VITALS: RESP 16
[2020-03-12] MEDS: KETOROLAC 15 MG/ML 1 ML VIAL IVP PRN (06:04)
[2020-03-12] MEDS: HYDROcodone/APAP 5-325MG 1 EACH TAB PO PRN ×2 (07:30→09:11)
--- NOTE | 2020-03-12 08:11 | P.DS ---
Providers Date of admission: 03/12/20 06:41 Expected date of discharge: 03/12/20 Attending physician: Urbano Everett Primary care physician: [facility] Course: Patient is doing very well postop day 1. She is ambulating, voiding and she is tolerating her diet. She is passing flatus and is requesting discharge to home. Prescription for Motrin and Madison or forwarded to the pharmacy. On physical exam vital signs are stable and afebrile. Heart regular, lungs clear, extremities without pain. Abdomen soft bowel sounds are noted in her incisions are otherwise intact. Assessment postop day 1 from robotic-assisted laparoscopic hysterectomy Plan discharged home follow up with me in 1 week. Patient Condition at Discharge: Good Plan - Discharge Summary Discharge Rx Participant: No New Discharge Prescriptions: New Ibuprofen [Motrin] 600 mg PO Q6HR PRN #30 tab PRN Reason: Pain HYDROcodone/APAP 5-325MG [Madison 5-325] 1 tab PO Q4HR PRN #30 tab PRN Reason: Pain No Action Ferrous Sulfate [Feosol] 325 mg PO BID Loratadine 10 mg PO QAM PRN PRN Reason: SEASONAL ALLERGIES Meclizine [Antivert] 25 mg PO Q6H PRN #20 tab PRN Reason: Dizziness Pantoprazole Sodium [Protonix] 20 mg PO DAILY PRN PRN Reason: GERD Ibuprofen [Motrin] 600 mg PO Q8HR PRN PRN Reason: Pain Discharge Medication List Ferrous Sulfate [Feosol] 325 mg PO BID 06/01/16 [History] Loratadine 10 mg PO QAM PRN 04/11/19 [History] Meclizine [Antivert] 25 mg PO Q6H PRN #20 tab 08/05/19 [Rx] Pantoprazole Sodium [Protonix] 20 mg PO DAILY PRN 08/20/19 [History] Ibuprofen [Motrin] 600 mg PO Q8HR PRN 03/04/20 [History] HYDROcodone/APAP 5-325MG [Madison 5-325] 1 tab PO Q4HR PRN #30 tab 03/12/20 [Rx] Ibuprofen [Motrin] 600 mg PO Q6HR PRN #30 tab 03/12/20 [Rx] Follow up Appointment(s)/Referral(s): Kuester,Urbano, DO [Doctor of Osteopathic Medicine] - 1 Week Activity/Diet/Wound Care/Special Instructions: No heavy lifting, limit stairs and driving, and complete pelvic rest. If any high temperatures, heavy bleeding, or severe pain call my office Discharge Disposition: HOME SELF-CARE
[2020-03-12 08:32] VITALS: BP 125/73; PULSE 66; TEMP 97.9
[2020-03-12 08:46] LABS: Anisocytosis Moderate; Basophils % (A) 0 %; Eosinophils % (A) 0 %; HCT 24.5 % (34.0-46.0); Hypochromasia Marked; Lymphocytes % (A) 20 %; MCH 20.2 pg (25.0-35.0); MCHC 27.3 g/dL (31.0-37.0); Mean Platelet Volume 7.7; Microcytosis Moderate; Monocytes # (A) 0.6 k/uL (0-1.0); Monocytes % (A) 6 %; Neutrophils # (A) 7.2 k/uL (1.3-7.7); Neutrophils % (A) 73 %; Platelet Count 294 k/uL (150-450); Poikilocytosis Slight; RBC 3.31 m/uL (3.80-5.40); RDW 20.5 % (11.5-15.5)
[2020-03-12 08:52] LABS: HGB 6.7 gm/dL (11.4-16.0)
== END 2020-03-12 10:30 | disposition home or self-care (01) ==
LOC: OR 06:02 → 6PED 09:05 → OR 03-12 06:53
PROVIDERS: ADMIT Obstetrics & Gynecology; ATTEND Obstetrics & Gynecology
DX: D25.9 Leiomyoma of uterus, unspecified (principal); N84.0 Polyp of corpus uteri; K21.9 Gastro-esophageal reflux disease without esophagitis; D64.9 Anemia, unspecified; H40.9 Unspecified glaucoma; R42 Dizziness and giddiness; F17.210 Nicotine dependence, cigarettes, uncomplicated; Z90.49 Acquired absence of other specified parts of digestive tract; Z79.899 Other long term (current) drug therapy
CPT/HCPCS: 58571; S2900; 80306; 81025; 85025; 86850; 86900; 86901; 88307

== ENCOUNTER → 2020-04-29 | Outpatient (CLI) | payer OTHER ==
[2020-04-29 09:00] LABS: Anisocytosis Moderate; HCT 31.2 % (34.0-46.0); Hypochromasia Marked; MCH 19.6 pg (25.0-35.0); MCHC 26.5 g/dL (31.0-37.0); MCV 73.9 fL (80.0-100.0); Mean Platelet Volume 6.8; Microcytosis Marked; Platelet Count 501 k/uL (150-450); Poikilocytosis Slight; RBC 4.23 m/uL (3.80-5.40); RDW 20.6 % (11.5-15.5); WBC 4.9 k/uL (3.8-10.6)
[2020-04-29 09:03] LABS: HGB 8.3 gm/dL (11.4-16.0)
--- NOTE | 2020-04-29 10:33 | CT ---
EXAMINATION TYPE: CT abdomen pelvis wo/w con DATE OF EXAM: 04/29/2020 HISTORY: anemia, 100 pound wt loss in one year CT DLP: 1237.9mGycm Automated Exposure Control for Dose Reduction was Utilized. CONTRAST: CT scan of the abdomen and pelvis is performed without and with IV Contrast, patient injected with 10 0 mL of Isovue 300. COMPARISON: CT abdomen and pelvis August 20, 2019 FINDINGS: LUNG BASES: No significant abnormality is appreciated. LIVER/GB: Liver size stable and upper limits of normal. Cholecystectomy clips are redemonstrated. PANCREAS: No significant abnormality is seen. SPLEEN: No significant abnormality is seen. ADRENALS: No significant abnormality is seen. KIDNEYS: Symmetric cortical medullary uptake and excretion without hydronephrosis seen bilaterally. P ersistence roughly 4.0 cm thin-walled cyst laterally upper pole of the right kidney. Bladder poorly d istended and thus suboptimally evaluated BOWEL: Oral contrast reaches level of the hepatic flexure making evaluation of distal bowel slightly suboptimal. Surgical changes epigastric region from Paloma fundoplication surgery be demonstrated. No suspicious small or large bowel dilatation. Normal-appearing appendix seen ascending from low-lying cecum. Persistent [id number]-lv-[id number] wall thickening of the transverse colon mid to distal aspect coron al image 21 series 12 for reference. Mild wall thickening distal to this through the splenic flexure into the proximal left colon. No surrounding inflammatory change. Mild to moderate prominence of feca l material in the sigmoid colon. UTERUS/ADNEXA: Uterus suspected bowel surgically absent. Scattered bilateral pelvic phleboliths redem onstrated. The remnant ovaries axial image 64 noted. LYMPH NODES: No greater than 1cm abdominal or pelvic lymph nodes are appreciated. OSSEOUS STRUCTURES: Mild to moderate disc space narrowing with vacuum disc phenomenon and moderate an terior spurring L5-S1 level. Stable right-sided pars defect L5 level without spondylolisthesis. OTHER: No significant additional abnormality is seen. IMPRESSION: 1. Hutg-oz-ostxyfjo wall thickening mid transverse colon through the proximal to mid left colon. Kumar ot exclude mild acute uncomplicated colitis versus chronic to poor distention. Correlate clinically. The mid to distal transverse colon finding slightly more suspicious areas had similar appearance on p rior CT, advise colonoscopy follow-up to rule out neoplasm at this level.
[2020-04-29 16:32] LABS: Gliadin AB IgA, Deaminated NEGATIVE (NEGATIVE); Gliadin AB IgA, Unit 1.7 U/mL; Gliadin AB IgG, Deaminated NEGATIVE (NEGATIVE)
[2020-04-29 20:46] LABS: % Iron Saturation 0.22 (12.00-45.00); Ferritin 4.1 ng/mL (10.0-291.0); Iron <2 ug/dL (50-170); Total Iron Binding Capacity 462 ug/dL (228-460)
== END | disposition home or self-care (01) ==
LOC: RADCTMAIN 07:55
PROVIDERS: ATTEND Internal Medicine Gastroenterology
DX: K63.9 Disease of intestine, unspecified (principal); R63.4 Abnormal weight loss; D50.9 Iron deficiency anemia, unspecified
CPT/HCPCS: 82728; 83540; 83550; 84443; 85027; 83516 ×4; 74178; 36415; Q9967

== ENCOUNTER → 2020-05-14 | Outpatient (CLI) | payer OTHER ==
--- NOTE | 2020-05-18 08:38 | MM ---
Reason for exam: screening (asymptomatic). Last mammogram was performed 1 year and 8 months ago. History: Patient is postmenopausal. Family history of breast cancer in maternal aunt at age 63. Physical Findings: A clinical breast exam by your physician is recommended on an annual basis and results should be correlated with mammographic findings. MG Screening Mammo w CAD Bilateral CC and MLO view(s) were taken. Prior study comparison: August 30, 2018, bilateral MG 3d screening mammo w/cad. September 25, 2016, bilateral MG screening mammo w CAD. There are scattered fibroglandular densities. No significant changes when compared with prior studies. ASSESSMENT: Negative, BI-RAD 1 RECOMMENDATION: Routine screening mammogram of both breasts in 1 year.
== END | disposition home or self-care (01) ==
LOC: RADMAMWWP 08:04
PROVIDERS: ATTEND Internal Medicine
DX: Z12.31 Encounter for screening mammogram for malignant neoplasm of breast (principal)
CPT/HCPCS: 77067

== ENCOUNTER 2020-07-19 20:13 | Emergency (ER) | payer OTHER ==
[2020-07-19 20:17] VITALS: RESP 18; TEMP 98.7
[2020-07-19] MEDS ORDERED: LIDOCAINE 5% PATCH TOPICAL STA (20:31)
[2020-07-19] MEDS ORDERED: KETOROLAC 15 MG/ML 1 ML VIAL IM STA (20:31)
--- NOTE | 2020-07-19 20:36 | ED ---
General Adult HPI - General Chief complaint: Back Pain/Injury Stated complaint: Rib Pain Time Seen by Provider: 07/19/20 20:20 Source: patient Mode of arrival: ambulatory Limitations: no limitations - History of Present Illness Initial comments: Dictation was produced using [employer] dictation software. please excuse any grammatical, word or spelling errors. 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 Patient states she carried 2 packs of 32 pack water bottle cases. This happened at approximately 7 PM. Patient states that during that movement she began having sharp left anterior chest pain. Patient states it's located to her ribs to her left anterior lateral ribs. Patient states it's worse when she takes a deep breath and worse when she presses. He denies any fever, chills or night sweats. Patient denies any symptoms incident. No nausea or vomiting. Patient has history of hysterectomy The ROS documented in this emergency department record has been reviewed and confirmed by me. Those systems with pertinent positive or negative responses have been documented in the HPI. All other systems are other negative and/or noncontributory. PHYSICAL EXAM: General Impression: Alert and oriented x3, acute distress secondary to pain HEENT: Normocephalic atraumatic, extra-ocular movements intact, pupils equal and reactive to light bilaterally, mucous membranes moist. Cardiovascular: Heart regular rate and rhythm Chest: Able to complete full sentences, no retractions, no tachypnea, lungs clear to auscultation bilaterally, patient has severe exquisite tenderness to the left lower anterolateral rib area Abdomen: abdomen soft, non-tender, non-distended, no organomegaly Musculoskeletal: Pulses present and equal in all extremities, no peripheral edema Motor: no focal deficits noted Neurological: CN II-XII grossly intact, no focal motor or sensory deficits noted Skin: Intact with no visualized rashes Psych: Normal affect and mood ED course: 50-year-old female presents with atraumatic left-sided rib pain. Vital signs upon arrival are within acceptable limits. Review x-rays are unremarkable. Patient reevaluated at bedside stable medical condition. She is sleeping comfortably. She is woken up and notified of her x- ray results. Patient is agreeable with discharge. She is given starter pack for Tylenol number threes. Patient will be discharged. - Related Data Home Medications Medication Instructions Recorded Confirmed Ferrous Sulfate [Feosol] 325 mg PO DAILY 06/01/16 07/19/20 Loratadine 10 mg PO DAILY 04/11/19 07/19/20 Allergies Allergy/AdvReac Type Severity Reaction Status Date / Time No Known Allergies Allergy Verified 07/19/20 21:06 Review of Systems ROS Statement: Those systems with pertinent positive or pertinent negative responses have been documented in the HPI. ROS Other: All systems not noted in ROS Statement are negative. Past Medical History Past Medical History: GERD/Reflux Additional Past Medical History / Comment(s): FREQUENT LOW IRON COUNTS. MIGRAINES. ANEMIA. hiatal hernia, History of Any Multi-Drug Resistant Organisms: None Reported Past Surgical History: Cholecystectomy, Hernia Repair, Orthopedic Surgery Additional Past Surgical History / Comment(s): ORIF Right Leg-Aguila Placed, D&C, rt eye surgery for glaucoma Past Anesthesia/Blood Transfusion Reactions: No Reported Reaction Past Psychological History: No Psychological Hx Reported Past Drug Use History: None Reported - Past Family History Mother Family Medical History: No Reported History General Exam Limitations: no limitations Course Vital Signs 07/19/20 07/19/20 20:15 20:25 Temperature 98.7 F Pulse Rate 80 Respiratory 18 18 Rate Blood Pressure 120/85 O2 Sat by Pulse 100 Oximetry Disposition Clinical Impression: Chest wall muscle strain Disposition: HOME SELF-CARE Condition: Good Instructions (If sedation given, give patient instructions): Thoracic Pain (ED) Is patient prescribed a controlled substance at d/c from ED?: No Referrals: Kevin Connell MD [Primary Care Provider] - 1-2 days Time of Disposition: 21:24
--- NOTE | 2020-07-19 21:05 | XR ---
EXAMINATION TYPE: XR ribs LT w pa chest xray DATE OF EXAM: 07/19/2020 COMPARISON: NONE HISTORY: Rib pain TECHNIQUE: 5 views FINDINGS: Heart and mediastinum are normal. Lungs are clear. Diaphragm is normal. The left ribs appea r intact. There is no pleural effusion or pneumothorax. IMPRESSION: Normal chest. Normal left ribs.
[2020-07-19] MEDS ORDERED: ACET/COD 300 MG/30 MG STARTER PACK 6 TAB BTL PO STA (21:24)
[2020-07-19 21:54] VITALS: BP 123/77; PULSE 73
== END 2020-07-19 21:53 | disposition home or self-care (01) ==
LOC: EC 20:13
DX: S29.011A Strain of muscle and tendon of front wall of thorax, initial encounter (principal); D64.9 Anemia, unspecified; Z79.899 Other long term (current) drug therapy; Z90.710 Acquired absence of both cervix and uterus; X50.0XXA Overexertion from strenuous movement or load, initial encounter
CPT/HCPCS: 71101; 99283; 96372; J1885

== ENCOUNTER → 2021-01-31 | Outpatient (CLI) | payer OTHER ==
--- NOTE | 2021-02-01 03:06 | MR ---
EXAMINATION TYPE: MR angio head wo con DATE OF EXAM: 01/31/2021 COMPARISON: None HISTORY: Migraines and dizziness. MR angiographic images were obtained of the intracerebral arterial circulation. There is arterial flow in the anterior middle and posterior cerebral arteries. There is arterial flow in both intracranial internal carotid arteries. There is arterial flow in the vertebrobasilar artery system. I see no evidence of hemodynamic stenosis. There is normal diameter of the vessels. There is no mass effect. There is arterial flow in both distal vertebral arteries. IMPRESSION: Negative MR angiogram of the brain.
== END | disposition home or self-care (01) ==
LOC: RADMRIMAIN 16:41
PROVIDERS: ATTEND Internal Medicine
DX: G43.909 Migraine, unspecified, not intractable, without status migrainosus (principal); R42 Dizziness and giddiness
CPT/HCPCS: 70544

== ENCOUNTER 2021-03-27 02:58 | Emergency (ER) | payer OTHER ==
[2021-03-27 03:05] VITALS: BP 145/90; PULSE 67; RESP 19; TEMP 97.5
[2021-03-27] MEDS ORDERED: DEXAMETHASONE SOD PHOSPHATE 10 MG/ML 1 ML VIAL IM STA (03:19)
[2021-03-27] MEDS ORDERED: AMOXIC-POT CLAV 875MG STARTER PACK 2 TAB BTL PO STA (03:19)
[2021-03-27] MEDS ORDERED: AMOXIC-POT CLAV 875-125MG 1 EACH TAB PO STA (03:19)
[2021-03-27] MEDS ORDERED: PSEUDOEPHEDRINE 12HR 120 MG TABLET.ER PO STA (03:19)
--- NOTE | 2021-03-27 03:21 | ED ---
URI HPI - General Chief Complaint: Headache Stated Complaint: Headache Time Seen by Provider: 03/27/21 03:02 Source: patient, RN notes reviewed, old records reviewed Mode of arrival: ambulatory - History of Present Illness MD Complaint: rhinorrhea, nasal congestion -: days(s) Severity: moderate Severity scale (1-10): 5 Quality: burning, sharp Consistency: intermittent Improves With: nothing Worsens With: nothing Associated Symptoms: hoarseness, ear pain Treatments Prior to Arrival: none - Related Data Home Medications Medication Instructions Recorded Confirmed Ferrous Sulfate [Feosol] 325 mg PO DAILY 06/01/16 07/19/20 Loratadine 10 mg PO DAILY 04/11/19 07/19/20 Previous Rx's Medication Instructions Recorded Amoxic-Pot Clav 875-125Mg 1 tab PO Q12HR #20 tablet 03/27/21 [Augmentin 875-125] Cetirizine HCl/Pseudoephedrine 1 tab PO BID #20 tab 03/27/21 [Zyrtec-D Tablet] Allergies Allergy/AdvReac Type Severity Reaction Status Date / Time No Known Allergies Allergy Verified 03/27/21 03:04 Review of Systems ROS Statement: Those systems with pertinent positive or pertinent negative responses have been documented in the HPI. ROS Other: All systems not noted in ROS Statement are negative. Past Medical History Past Medical History: GERD/Reflux Additional Past Medical History / Comment(s): FREQUENT LOW IRON COUNTS. MIGRAINES. ANEMIA. hiatal hernia, History of Any Multi-Drug Resistant Organisms: None Reported Past Surgical History: Cholecystectomy, Hernia Repair, Orthopedic Surgery Additional Past Surgical History / Comment(s): ORIF Right Leg-Aguila Placed, D&C, rt eye surgery for glaucoma Past Anesthesia/Blood Transfusion Reactions: No Reported Reaction Past Psychological History: No Psychological Hx Reported Smoking Status: Never smoker Past Alcohol Use History: None Reported Past Drug Use History: None Reported - Past Family History Mother Family Medical History: No Reported History General Exam General appearance: alert, in no apparent distress Head exam: Present: atraumatic, normocephalic, normal inspection Eye exam: Present: normal appearance, PERRL, EOMI. Absent: scleral icterus, conjunctival injection, periorbital swelling ENT exam: Present: normal exam, mucous membranes moist Neck exam: Present: normal inspection. Absent: tenderness, meningismus, lymphadenopathy Respiratory exam: Present: normal lung sounds bilaterally. Absent: respiratory distress, wheezes, rales, rhonchi, stridor Cardiovascular Exam: Present: regular rate, normal rhythm, normal heart sounds. Absent: systolic murmur, diastolic murmur, rubs, gallop, clicks GI/Abdominal exam: Present: soft, normal bowel sounds. Absent: distended, tenderness, guarding, rebound, rigid Extremities exam: Present: normal inspection, full ROM, normal capillary refill. Absent: tenderness, pedal edema, joint swelling, calf tenderness Back exam: Present: normal inspection Neurological exam: Present: alert, oriented X3, CN II-XII intact Psychiatric exam: Present: normal affect, normal mood Skin exam: Present: warm, dry, intact, normal color. Absent: rash Course Vital Signs 03/27/21 03:01 Temperature 97.5 F L Pulse Rate 67 Respiratory 19 Rate Blood Pressure 145/90 O2 Sat by Pulse 99 Oximetry - Reevaluation(s) Reevaluation #1: 03/27/21 06:54 Medical record is reviewed Reevaluation #2: 03/27/21 06:54 Patient symptoms are improved Reevaluation #3: 03/27/21 06:54 Patient feels good for discharge home with antibiotics Disposition Clinical Impression: Sinusitis Disposition: HOME SELF-CARE Condition: Good Instructions (If sedation given, give patient instructions): Sinusitis (ED) Prescriptions: Amoxic-Pot Clav 875-125Mg [Augmentin 875-125] 1 tab PO Q12HR #20 tablet Cetirizine HCl/Pseudoephedrine [Zyrtec-D Tablet] 1 tab PO BID #20 tab Is patient prescribed a controlled substance at d/c from ED?: No Referrals: Kevin Connell MD [Primary Care Provider] - 1-2 days
== END 2021-03-27 03:38 | disposition home or self-care (01) ==
LOC: EC 02:58
DX: J32.9 Chronic sinusitis, unspecified (principal)
CPT/HCPCS: 99283; 96372; J1100

== ENCOUNTER 2022-02-13 23:47 | Emergency (ER) | payer OTHER ==
[2022-02-13 23:52] VITALS: BP 141/91; PULSE 86; RESP 18; TEMP 98.5
[2022-02-14] MEDS ORDERED: AMOXIC-POT CLAV 875-125MG 1 EACH TAB PO STA (00:33)
--- NOTE | 2022-02-14 00:40 | ED ---
ENT HPI - General Chief complaint: ENT Stated complaint: Bilateral ear pain Source: patient Mode of arrival: ambulatory Limitations: no limitations - History of Present Illness Initial comments: This 51-year-old female presents with the complaint of bilateral ear pain and decreased hearing. She states that she has had this for approximately one month. She was placed on a medication initially which sounds like it might of been a cephalosporin for 10 days without relief. This did not help her symptomatology. She then was placed on doxycycline and an eardrop and this has not helped as well. The problems with hearing have worsened. She denies any fevers or chills. She denies any significant change in her nasal congestion. She normally will take an antihistamine for her sinus problems. No other complaints or modifying factors. - Related Data Home Medications Medication Instructions Recorded Confirmed Ferrous Sulfate [Feosol] 325 mg PO DAILY 06/01/16 07/19/20 Loratadine 10 mg PO DAILY 04/11/19 07/19/20 Previous Rx's Medication Instructions Recorded Amoxic-Pot Clav 875-125Mg 1 tab PO Q12HR #20 tablet 03/27/21 [Augmentin 875-125] Cetirizine HCl/Pseudoephedrine 1 tab PO BID #20 tab 03/27/21 [Zyrtec-D Tablet] Amoxic-Pot Clav 875-125Mg 1 each PO Q12HR #20 tablet 02/14/22 [Augmentin Xr 875-125] Allergies Allergy/AdvReac Type Severity Reaction Status Date / Time No Known Allergies Allergy Verified 02/13/22 23:51 Review of Systems ROS Statement: Those systems with pertinent positive or pertinent negative responses have been documented in the HPI. ROS Other: All systems not noted in ROS Statement are negative. Past Medical History Past Medical History: GERD/Reflux Additional Past Medical History / Comment(s): FREQUENT LOW IRON COUNTS. MIGRAINES. ANEMIA. hiatal hernia, History of Any Multi-Drug Resistant Organisms: None Reported Past Surgical History: Cholecystectomy, Hernia Repair, Orthopedic Surgery Additional Past Surgical History / Comment(s): ORIF Right Leg-Aguila Placed, D&C, rt eye surgery for glaucoma Past Anesthesia/Blood Transfusion Reactions: No Reported Reaction Past Psychological History: No Psychological Hx Reported Smoking Status: Current every day smoker Past Alcohol Use History: None Reported Past Drug Use History: None Reported - Past Family History Mother Family Medical History: No Reported History General Exam Limitations: no limitations General appearance: alert, in no apparent distress ENT exam: Present: other (There is bilateral tympanic membrane erythema and bulging. There is no external auditory canal swelling or erythema. There is no mastoid tenderness. No sinus tenderness.) Neck exam: Absent: tenderness Psychiatric exam: Present: normal affect, normal mood Skin exam: Present: intact. Absent: rash Course Vital Signs 02/13/22 23:50 Temperature 98.5 F Pulse Rate 86 Respiratory 18 Rate Blood Pressure 141/91 O2 Sat by Pulse 96 Oximetry Medical Decision Making - Medical Decision Making The patient was seen and examined. It appears as though she has fairly significant bilateral otitis media. She is instructed to utilize Afrin nasal spray for the next 3 days as well as Mucinex DM. She also is instructed to discontinue the doxycycline and eardrops and she will be placed on Augmentin instead. ENT referral information will be given. Return parameters are discussed. Close follow-up recommended. Disposition Clinical Impression: Otitis media Disposition: HOME SELF-CARE Condition: Good Instructions (If sedation given, give patient instructions): Ear Infection (ED) Additional Instructions: Please take Afrin nasal spray for the next 3 days only. Please try Mucinex DM or similar decongestant as discussed. Please stop her current ear drops as well as doxycycline medication. Please use Tylenol and/or Motrin as needed for pain. Prescriptions: Amoxic-Pot Clav 875-125Mg [Augmentin Xr 875-125] 1 each PO Q12HR #20 tablet Is patient prescribed a controlled substance at d/c from ED?: No Referrals: Kevin Connell MD [Primary Care Provider] - 1-2 days Time of Disposition: 00:40
== END 2022-02-14 00:53 | disposition home or self-care (01) ==
LOC: EC 23:47
DX: H66.93 Otitis media, unspecified, bilateral (principal); K21.9 Gastro-esophageal reflux disease without esophagitis; F17.200 Nicotine dependence, unspecified, uncomplicated; Z79.899 Other long term (current) drug therapy
CPT/HCPCS: 99282

== ENCOUNTER → 2023-02-23 | Outpatient (CLI) | payer OTHER ==
--- NOTE | 2023-02-23 09:14 | US ---
EXAMINATION TYPE: US liver DATE OF EXAM: 02/23/2023 COMPARISON: CT abdomen and pelvis 04/29/2090 CLINICAL INDICATION: Female, 52 years old with history of R74.01 LIVER; abn lft's, no symptoms, vickie cystectomy TECHNIQUE: Multiple sonographic images of the right upper quadrant are obtained. FINDINGS: EXAM MEASUREMENTS: Liver Length: 18.7 cm Gallbladder Wall: Surgically absent CBD: 0.7 cm Right Kidney: 11.5 x 6.3 x 6.1 cm Pancreas: wnl Liver: wnl Gallbladder: Surgically absent CBD: wnl Right Kidney: large simple appearing cyst = 6.2 x 5.3 x 5.0cm Unremarkable appearance of the pancreas. Liver is within normal limits without focal lesion. Noncirrh otic appearance. Gallbladder is surgically absent. Common bile duct is within normal limits. Right ki dney demonstrate no evidence of solid mass, nephrolithiasis, or hydronephrosis. Large simple cyst marin ntified in the superior pole measuring up to 6.2 cm. IMPRESSION: 1. No acute process. 2. Postcholecystectomy changes. 3. Right renal simple cyst.
== END | disposition home or self-care (01) ==
LOC: RADUSWWP 07:38
PROVIDERS: ATTEND Internal Medicine Gastroenterology
DX: N28.1 Cyst of kidney, acquired (principal); R74.01 Elevation of levels of liver transaminase levels; Z90.49 Acquired absence of other specified parts of digestive tract
CPT/HCPCS: 76705

== ENCOUNTER → 2023-08-27 | Outpatient (CLI) | payer OTHER ==
[2023-08-27 15:40] LABS: ALT 23 U/L (8-44); AST 18 U/L (13-35); Albumin 4.3 g/dL (3.8-4.9); Albumin/Globulin Ratio 1.48 Ratio (1.60-3.17); Alkaline Phosphatase 74 U/L (41-126); BUN/Creat Ratio 9.75 Ratio (12.00-20.00); Blood Urea Nitrogen 7.8 mg/dL (9.0-27.0); Calcium 9.5 mg/dL (8.7-10.3); Carbon Dioxide 26.6 mmol/L (21.6-31.8); Chloride 104 mmol/L (96-109); Globulin 2.9 g/dL (1.6-3.3); Glucose 84 mg/dL (70-110); Potassium 4.5 mmol/L (3.5-5.5); Sodium 140 mmol/L (135-145); Total Bilirubin 0.3 mg/dL (0.3-1.2); Total Protein 7.2 g/dL (6.2-8.2)
== END | disposition home or self-care (01) ==
LOC: LABWHC1 10:16
PROVIDERS: ATTEND Internal Medicine Gastroenterology
DX: R74.01 Elevation of levels of liver transaminase levels (principal)
CPT/HCPCS: 36415; 80053